=== PATIENT | male | born 1985 | race Caucasian/White ===

== ENCOUNTER 2024-07-17 07:13 | Inpatient (IN) | payer BC ==
[2024-07-17] MEDS ORDERED: ONDANSETRON 4 MG/2 ML VIAL ONE ×2 (07:30→13:57)
[2024-07-17] MEDS ORDERED: DIPHENHYDRAMINE 50 MG/ML VIAL ONE (07:30)
[2024-07-17] MEDS ORDERED: MORPHINE 4 MG/ML SYR ONE (07:30)
[2024-07-17] MEDS ORDERED: FAMOTIDINE 20 MG/2 ML VIAL IV ONE (07:30)
[2024-07-17] MEDS ORDERED: NA CHLORIDE 0.9% 1,000 ML ONE ×2 (07:30→11:49)
[2024-07-17 07:54] LABS: Absolute Basophils 0.2 K/uL (0-0.5); Absolute Eosinophils 0.1 K/uL (0-0.5); Absolute Lymphocytes (CBC) 2.9 K/uL (0.7-4.9); Absolute Monocytes 0.8 K/uL (0.1-1.3); Absolute Neutrophil 13.9 K/uL (1.8-8.0); Eosinophils % 0.3 % (0-4.4); Hematocrit 52.3 % (39.6-49.0); Lymphocytes % 16.1 % (15.3-44.8); MCH 33.7 pg (27.0-35.0); MCHC 36.3 g/dL (32.0-36.0); MCV 92.7 fL (80-100); MPV 7.7 fL (7.6-11.3); Monocytes % 4.4 % (3.3-12.3); Neutrophils % 78.2 % (41.7-73.7); Nucleated RBC Absolute Count 0.1 (0-0); Nucleated Red Blood Cells % 0.4 % (0-0); Platelets 318 thou/uL (152-406); RBC Red Blood Cell Count 5.64 M/uL (4.33-5.43); Red Cell Distribution Width 14.4 % (12.1-15.2)
[2024-07-17] MEDS ORDERED: HYDROMORPHONE HCL 1 MG/ML INJ ONE ×2 (08:10→10:27)
[2024-07-17 08:14] LABS: Albumin/Globulin Ratio 1.1 (1.1-1.8); Anion Gap 16.4 mEq/L (5.0-15.0); Bilirubin Total 2.2 mg/dL (0.2-1.0); Globulin 3.7 g/dL (2.3-3.5); Potassium 3.4 mEq/L (3.5-5.1); Protein, Total 7.7 g/dL (6.4-8.2)
[2024-07-17 08:19] LABS: Sqamous Epithelial <5 /HPF (None Seen); Urine Bacteria None Seen /HPF (<20); Urine Bilirubin NEGATIVE (Negative); Urine Blood Trace (Negative); Urine Clarity Clear (Clear); Urine Color Light-Orange (Yellow); Urine Culture Reflex Order NOT NEEDED; Urine Glucose NEGATIVE (Negative); Urine Ketones 1+ (Negative); Urine Microscopic Reflex YN ORDER UMIC; Urine Mucus 4+ /HPF (None Seen); Urine Nitrite NEGATIVE (Negative); Urine Protein 2+ (Negative); Urine RBC <5 /HPF (None Seen); Urine Urobilinogen Normal (Normal); Urine WBC <5 /HPF (<5); Urine pH 6.5 (5.0-7.0)
[2024-07-17 08:20] LABS: Specific Gravity > 1.030 (1.005-1.030)
[2024-07-17] MEDS ORDERED: LABETALOL 20 MG/4ML SYRINGE IV ONE ×2 (08:29→10:27)
--- NOTE | 2024-07-17 08:40 | RAD REPORT ---
EXAM: Chest Single View HISTORY: 38 years Male abdominal pain COMPARISON: None. FINDINGS: LUNGS/PLEURA: The lungs are clear. No pleural effusions or pneumothorax. No pulmonary edema. CARDIAC/MEDIASTINUM: The cardiac silhouette is within normal limits. UPPER ABDOMEN: No significant abnormality. BONES: No acute abnormality. LINES/TUBES/OTHER: N/A IMPRESSION: No evidence of acute cardiopulmonary disease.
--- NOTE | 2024-07-17 09:07 | EDPHYS ---
Physician Documentation [facility] Name: Serjio Galarza Age: 38 yrs Sex: Male : 1985 Arrival Date: 07/17/2024 Time: 07:13 Bed 13 Private MD: ED Physician Atilio Reyes HPI: 07/17 07:33 This 38 yrs old Male presents to ER via Ambulatory with complaints of Nausea/Vomiting, ms3 Abdominal Pain. 07:38 38-year-old male with past medical history of hypertension, hypothyroidism presents to [facility] the emergency department for epigastric abdominal pain, nausea, vomiting. Patient rates his pain a 10/10. Patient denies any alleviating or inciting factors. Patient states he is taken Tylenol and ibuprofen without improvement of his symptoms. Patient states he was seen at [place] [facility] last night and diagnosed with pancreatitis. Patient endorses drinking 3 to 4 glasses of whiskey per night over the last 3 years.. Historical: - Allergies: 07:22 opiates; ll1 - PMHx: 07:22 Hypertensive disorder; Hypothyroidism; ll1 - PSHx: 07:22 None; ll1 - Immunization history:: Adult Immunizations up to date. - Infectious Disease History:: Denies. - Social history:: Smoking status: Patient denies any tobacco usage or history of. ROS: 07:38 Constitutional: Negative for fever, and chills. Cardiovascular: Negative for chest ms3 pain, and palpitations. Respiratory: Negative for shortness of breath, cough, wheezing, and pleuritic chest pain, 07:38 MS/Extremity: Negative for injury and deformity, Skin: Negative for injury, rash, and discoloration, 07:38 Abdomen/GI: Positive for abdominal pain, nausea and vomiting, Exam: 07:38 Constitutional: This is a well developed, well nourished patient who is awake, alert, ms3 and in no acute distress. Cardiovascular: Regular rate and rhythm with a normal S1 and S2. No gallops, murmurs, or rubs. Normal PMI, no JVD. No pulse deficits. Respiratory: Lungs have equal breath sounds bilaterally, clear to auscultation and percussion. No rales, rhonchi or wheezes noted. No increased work of breathing, no retractions or nasal flaring. 07:38 Abdomen/GI: Inspection: abdomen appears normal, Bowel sounds: normal, Palpation: moderate abdominal tenderness, in all quadrants, Vital Signs: 07:22 BP 173 / 134; Pulse 130; Resp 26; Temp 97.3; Pulse Ox 93% ; Weight 132.45 kg; Height 5 ll1 ft. 10 in. ; Pain 10/10; 08:15 BP 185 / 124; Pulse 114; Resp 16; Pulse Ox 88% ; bp 09:11 BP 163 / 118; Pulse 98; Resp 18; Pulse Ox 92% ; bp 07:22 Body Mass Index 41.90 (132.45 kg, 177.8 cm) ll1 07:22 Pain Scale: Adult ll1 MDM: 07:17 Medical Screening Exam initiated ms3 07:38 Differential diagnosis: Nonspecific abd pain, gastritis, pancreatitis. External Records ms3 Reviewed: Outpatient labs: CBC from [facility][1] white blood count 13.2, hemoglobin 18.2, hematocrit 50.9, platelet 329. EKG performed 07/16/2024 at 1928 shows sinus tachycardia, nonspecific T wave abnormalities, normal axis. Urinalysis negative. Cardiac enzymes negative. Met 8: Sodium 141, potassium 4.4, chloride 102, bicarb 28, creatinine 1.1, glucose 144. Liver panel albumin 4.2, alk phos 55, ALT 28, amylase 37, AST 41, total bilirubin 0.9, GGT 135. CTA chest with IV contrast shows no acute findings in the visualized arteries of the chest. CT abdomen pelvis with IV contrast shows acute interstitial pancreatitis, hepatomegaly and hepatic steatosis. right upper quadrant ultrasound shows no acute findings in the right upper quadrant.. 10:16 Data reviewed: vital signs, nurses notes, lab test result(s), and as a result, I will ms3 admit patient. Consideration of Admission/Observation Patient was admitted/placed on observation. Management of patient was discussed with the following: Hospitalist: Dr Mendosa. I considered the following discharge prescriptions or medication management in the emergency department Medications were administered in the Emergency Department. See MAR. Counseling: I had a detailed discussion with the patient and/or guardian regarding the historical points, exam findings, and any diagnostic results supporting the discharge/admit diagnosis, lab results, the need for further work-up and treatment in the hospital. Medication response: labetalol partially reduced the patient's blood pressure, morphine partially relieved the patient's pain, Dilaudid. Response to treatment: the patient's symptoms have mildly improved after treatment, and as a result, I will admit patient. ED course: Discussed case with Dr Mendosa and he accepts patient for admission. Discussed necessity of admission with patient and his and they understand/ agree with plan.. 07/17 07:17 Order name: CBC with Diff; Complete Time: 08:09 ms3 07/17 07:17 Order name: CMP; Complete Time: 08:25 ms3 07/17 07:17 Order name: Lipase; Complete Time: 08:25 ms3 07/17 07:20 Order name: Urinalysis w/ reflexes; Complete Time: 08:25 bp 07/17 08:26 Order name: Lipid Profile ms3 07/17 09:13 Order name: CBC with Automated Diff EDMS 07/17 09:13 Order name: CBC with Automated Diff EDMS 07/17 09:13 Order name: Comprehensive Metabolic Panel EDMS 07/17 09:13 Order name: Comprehensive Metabolic Panel EDMS 07/17 07:35 Order name: CXR XRAY; Complete Time: 08:53 ms3 07/17 09:13 Order name: CONS Physician Consult EDMS 07/17 07:17 Order name: IV Saline Lock; Complete Time: 07:42 ms3 07/17 07:17 Order name: Labs collected and sent; Complete Time: 07:42 ms3 Administered Medications: 07:42 Drug: Famotidine IVP 20 mg IVP once; dilute with 10 mL 0.9% NaCl; give over 2 minutes bp Route: IVP; Site: right forearm; 08:14 Follow up: Response: No adverse reaction bp 07:42 Drug: Ondansetron IVP 4 mg IVP once; over 2 minutes Route: IVP; Site: right forearm; bp 08:14 Follow up: Response: No adverse reaction bp 07:42 Drug: morphine IVP or IV 4 mg IVP once over 4 mins Route: IVP; Infused Over: 4 mins; bp Site: right forearm; 08:14 Follow up: Response: No adverse reaction bp 07:42 Drug: diphenhydrAMINE IVP 25 mg IVP once Route: IVP; Site: right forearm; bp 08:14 Follow up: Response: No adverse reaction bp 07:42 Drug: NS 0.9% IV 1000 ml IV at 1000 ml once; to be given as a bolus over 60 minutes bp Route: IV; Rate: 1000 ml; Site: right forearm; 12:03 Follow up: IV Status: Completed infusion bp 08:14 Drug: HYDROmorphone IVP 1 mg IVP once Route: IVP; Site: right forearm; bp 08:14 Follow up: Response: No adverse reaction bp 08:32 Drug: Labetalol IV 10 mg IV at calculated rate once Route: IV; Rate: calculated rate; bp Site: right forearm; 12:03 Follow up: IV Status: Completed infusion bp 08:45 Drug: NS 0.9% IV 1000 ml IV at 1 bolus Per protocol; to be given as a bolus over 60 bp minutes Route: IV; Rate: 1 bolus; Site: right forearm; 12:03 Follow up: IV Status: Completed infusion bp 10:15 Drug: Ketorolac IVP 10 mg 10 mg IVP once Route: IVP; Site: right forearm; bp 12:03 Follow up: Response: No adverse reaction bp 10:20 Drug: Labetalol IV 10 mg IV at calculated rate once Route: IV; Rate: calculated rate; bp Site: right forearm; 12:02 Follow up: IV Status: Completed infusion bp 10:20 Drug: HYDROmorphone IVP 1 mg IVP once Route: IVP; Site: right forearm; bp 12:02 Follow up: Response: No adverse reaction bp Disposition Summary: 07/17/24 09:06 Hospitalization Ordered Notes: Hospitalization Status: Inpatient Admission ms3 Provider: Drake Mendosa ms3 Condition: Stable ms3 Problem: new ms3 Symptoms: are unchanged ms3 Bed/Room Type: Standard ms3 Location: Telemetry/MedSurg (Inpatient)(07/17/24 17:09) sp Room Assignment: 220(07/17/24 17:09) sp Diagnosis - Alcohol induced acute pancreatitis without necrosis or infection ms3 - Abdominal pain, Generalized ms3 Forms: - Medication Reconciliation Form ms3 - SBAR form ms3 - Leadership Thank You Letter ms3 Critical care time excluding procedures: 10:16 Critical care time: Bedside Care: 40 minutes, Consultation: 5 minutes, Family ms3 Intervention: 5 minutes. Total time: 50 minutes Signatures: Dispatcher [employer] EDSondra Torres Brian, RN RN Ciarra Johnson RN RN ll1 Atilio Reyes, DO ms3 Kelly Roe RN RN kb3 Corrections: (The following items were deleted from the chart) 07:17 07:17 CBC+H.LAB.BRZ ordered. EDMS EDMS 07:17 07:17 COMPREHENSIVE METABOLIC PANEL+C.LAB.BRZ ordered. EDMS EDMS 07:17 07:17 LIPASE+C.LAB.BRZ ordered. EDMS EDMS 07:20 07:20 Urinalysis+U.LAB.BRZ ordered. EDMS EDMS 07:35 07:35 Chest Single View+RAD.RAD.BRZ ordered. EDMS EDMS 07:47 07:38 38-year-old male with past medical history of hypertension, hypothyroidism ms3 presents to the emergency department for epigastric abdominal pain, nausea, vomiting. Patient rates his pain a 10/10. Patient denies any alleviating or inciting factors. Patient states he is taken Tylenol and ibuprofen without improvement of his symptoms. Patient states he was seen at [facility][1] last night and diagnosed with pancreatitis.. ms3 10:25 09:06 Telemetry/MedSurg (Inpatient) ms3 kb3 10:25 09:06 ms3 kb3 17:09 10:[address] [facility] ER HOLD kb3 sp 17:09 10:25 ERHOLD- kb3 sp
--- NOTE | 2024-07-17 09:07 | ER ---
Nurse's Notes [facility] Name: Serjio Galarza Age: 38 yrs Sex: Male : 1985 Arrival Date: 07/17/2024 Time: 07:13 Bed 13 Private MD: Diagnosis: Alcohol induced acute pancreatitis without necrosis or infection;Abdominal pain, Generalized Presentation: 07/17 07:22 Chief complaint: Patient states: Severe abdominal pain with N/V for 2 days. Urgent Care ll1 diagnosed him with pancreatitis. Coronavirus screen: Client denies travel out of the [place] in the last 14 days. fatigue, nausea, vomiting. Client presents with at least one sign or symptom that may indicate coronavirus-19. Standard/surgical mask placed on the client. Ebola Screen: Patient denies travel to an Ebola-affected area in the 21 days before illness onset. Initial Sepsis Screen: Does the patient meet any 2 criteria? No. Patient's initial sepsis screen is negative. Does the patient have a suspected source of infection? No. Patient's initial sepsis screen is negative. Risk Assessment: Do you want to hurt yourself or someone else? Patient reports no desire to harm self or others. Onset of symptoms was July 16, 2024. 07:22 Method Of Arrival: Ambulatory ll1 07:22 Acuity: ANGELA 2 ll1 Triage Assessment: 07:24 General: Appears distressed, uncomfortable, ill, Behavior is calm, cooperative, ll1 appropriate for age, Reports feeling ill for fatigue for. Neuro: No deficits noted. GI: Reports lower abdominal pain, upper abdominal pain, cramping, nausea, vomiting. Historical: - Allergies: 07:22 opiates; ll1 - PMHx: 07:22 Hypertensive disorder; Hypothyroidism; ll1 - PSHx: 07:22 None; ll1 - Immunization history:: Adult Immunizations up to date. - Infectious Disease History:: Denies. - Social history:: Smoking status: Patient denies any tobacco usage or history of. Screenin:45 [facility] ED Fall Risk Assessment (Adult) History of falling in the last 3 months, bp including since admission No falls in past 3 months (0 pts) Confusion or Disorientation No (0 pts) Intoxicated or Sedated No (0 pts) Impaired Gait No (0 pts) Mobility Assist Device Used No (0 pt) Altered Elimination No (0 pt) Score/Fall Risk Level 0 - 2 = Low Risk Oriented to surroundings. Abuse screen: Denies threats or abuse. Denies injuries from another. Nutritional screening: No deficits noted. Tuberculosis screening: No symptoms or risk factors identified. Assessment: 07:30 General: Appears distressed, uncomfortable, obese, Behavior is cooperative, appropriate bp for age, agitated, anxious. Pain: Complains of pain in abdomen. Neuro: No deficits noted. Cardiovascular: No deficits noted. Respiratory: No deficits noted. GI: Abdomen is non-distended, Reports upper abdominal pain. : No signs and/or symptoms were reported regarding the genitourinary system. EENT: No deficits noted. Derm: Skin is intact, Skin is clammy, Skin temperature is cool. 08:16 Reassessment: No changes from previously documented assessment. Patient is alert, bp oriented x 3, equal unlabored respirations, skin warm/dry/pink. Vital Signs: 07:22 BP 173 / 134; Pulse 130; Resp 26; Temp 97.3; Pulse Ox 93% ; Weight 132.45 kg; Height 5 ll1 ft. 10 in. ; Pain 10/10; 08:15 BP 185 / 124; Pulse 114; Resp 16; Pulse Ox 88% ; bp 09:11 BP 163 / 118; Pulse 98; Resp 18; Pulse Ox 92% ; bp 07:22 Body Mass Index 41.90 (132.45 kg, 177.8 cm) ll1 07:22 Pain Scale: Adult ll1 ED Course: 07:16 Patient arrived in ED. gm2 07:17 Atilio Reyes DO is Attending Physician. ms3 07:18 Luke Newby, RN is Primary Nurse. bp 07:22 Arm band placed on Patient placed in an exam room, on a stretcher. ll1 07:24 Triage completed. ll1 07:42 Initial lab(s) drawn, by me, sent to lab. Urine collected: clean catch specimen, ceci bp colored. Inserted saline lock: 20 gauge in right forearm, using aseptic technique. Blood collected. Flushed with 10 mL NS. 07:45 Patient has correct armband on for positive identification. bp 08:19 CXR XRAY In Process Unspecified. EDMS 09:05 Drake Mendosa MD is Hospitalizing Provider. ms3 12:01 No provider procedures requiring assistance completed. Patient admitted, IV remains in bp place. Administered Medications: 07:42 Drug: Famotidine IVP 20 mg IVP once; dilute with 10 mL 0.9% NaCl; give over 2 minutes bp Route: IVP; Site: right forearm; 08:14 Follow up: Response: No adverse reaction bp 07:42 Drug: Ondansetron IVP 4 mg IVP once; over 2 minutes Route: IVP; Site: right forearm; bp 08:14 Follow up: Response: No adverse reaction bp 07:42 Drug: morphine IVP or IV 4 mg IVP once over 4 mins Route: IVP; Infused Over: 4 mins; bp Site: right forearm; 08:14 Follow up: Response: No adverse reaction bp 07:42 Drug: diphenhydrAMINE IVP 25 mg IVP once Route: IVP; Site: right forearm; bp 08:14 Follow up: Response: No adverse reaction bp 07:42 Drug: NS 0.9% IV 1000 ml IV at 1000 ml once; to be given as a bolus over 60 minutes bp Route: IV; Rate: 1000 ml; Site: right forearm; 12:03 Follow up: IV Status: Completed infusion bp 08:14 Drug: HYDROmorphone IVP 1 mg IVP once Route: IVP; Site: right forearm; bp 08:14 Follow up: Response: No adverse reaction bp 08:32 Drug: Labetalol IV 10 mg IV at calculated rate once Route: IV; Rate: calculated rate; bp Site: right forearm; 12:03 Follow up: IV Status: Completed infusion bp 08:45 Drug: NS 0.9% IV 1000 ml IV at 1 bolus Per protocol; to be given as a bolus over 60 bp minutes Route: IV; Rate: 1 bolus; Site: right forearm; 12:03 Follow up: IV Status: Completed infusion bp 10:15 Drug: Ketorolac IVP 10 mg 10 mg IVP once Route: IVP; Site: right forearm; bp 12:03 Follow up: Response: No adverse reaction bp 10:20 Drug: Labetalol IV 10 mg IV at calculated rate once Route: IV; Rate: calculated rate; bp Site: right forearm; 12:02 Follow up: IV Status: Completed infusion bp 10:20 Drug: HYDROmorphone IVP 1 mg IVP once Route: IVP; Site: right forearm; bp 12:02 Follow up: Response: No adverse reaction bp Medication: 12:01 VIS not applicable for this client. bp Outcome: 09:06 Decision to Hospitalize by Provider. ms3 12:01 Admitted to ER Hold. Please see [facility] for further documentation. bp 12:01 Condition: stable 12:01 Instructed on the need for admit, 18:12 Patient left the ED. bp Signatures: Dispatcher [employer] EDLuke Frazier RN RN bp Ciarra Lynne RN RN ll1 Atilio Reyes DO DO ms3 Khadijah Martins gm2 Corrections: (The following items were deleted from the chart) 07:25 07:22 Pulse 130bpm; Resp 26bpm; Pulse Ox 93%; Temp 97.3F; 132.45 kg; Height 5 ft. 10 ll1 in.; BMI: 41.9; Pain 10/10, Adult; ll1
[2024-07-17] MEDS ORDERED: MORPHINE 4 MG/ML SYR IV PRN (09:08)
[2024-07-17] MEDS: NA CHLORIDE 0.9% 1,000 ML IV SCH (10:00)
[2024-07-17] MEDS ORDERED: KETOROLAC 30 MG/ML INJ ONE ×2 (10:03→15:26)
[2024-07-17] MEDS: FENTANYL CITR 100 MCG/2 ML IV PRN ×2 (13:00→18:42)
[2024-07-17] MEDS ORDERED: HYDROMORPHONE HCL 2 MG/ML inj IV PRN (13:01)
[2024-07-17] MEDS: PIPER TAZO 4.5 GM in NA CHLORIDE 0.9% 100 ML IV SCH (14:00)
[2024-07-17] MEDS: ONDANSETRON 4 MG/2 ML VIAL IV PRN (14:06)
[2024-07-17] MEDS: SODIUM CHLORIDE 0.9% 10ML INJ IV PRN (14:06)
[2024-07-17] MEDS ORDERED: PIPERACIL/TAZO 4.5 GM VIAL IV ONE (15:26)
[2024-07-17] MEDS ORDERED: NA CHLORIDE 0.9% 250 ML ONE (15:26)
[2024-07-17] MEDS: KETOROLAC 30 MG/ML INJ IV ONE (15:34)
[2024-07-17] MEDS: METOPROLOL TARTRATE 5 MG/5 ML INJ IV PRN (16:30)
[2024-07-17] MEDS ORDERED: FENTANYL CITR 100 MCG/2 ML ONE (16:41)
[2024-07-17] MEDS ORDERED: METOPROLOL TARTRATE 5 MG/5 ML INJ IV ONE (16:41)
--- NOTE | 2024-07-17 18:10 | P.HP ---
Patient History Date of Service: 07/17/24 Reason for admission: SEVERE ABDOMEN PAIN. History of Present Illness: JAMAR IS 38 YEARS OLD GM IN SEVERE STRESS COMES WITH EPIG PAIN AND RADIATION TO BACK. [facility] SHOWS ACUTE PANCREATITIS.GOES HOME BUT IS IN SEVERE PAIN SO RETURNS TO THIS ER. HE HAS LIPASE OF 2K. HE HAS DRUNK ABOUT 4 SCOTCH GLASSES EVERY NIGHT FOR A WHILE. Allergies narcotics Adverse Reaction (Uncoded 07/17/24 11:41) Nausea/Vomiting Home medications list reviewed: Yes - Past Medical/Surgical History Diabetic: No -: HTN - Social History Smoking Status: Never smoker Place of Residence: Home Review of Systems 10-point ROS is otherwise unremarkable General: Weakness Gastrointestinal: Abdominal Pain, Distention, As per HPI Physical Examination - Vital Signs Blood Pressure: 166/120 Pulse: 109 Respirations: 20 Pulse Ox (%): 95 - Physical Exam General: Alert, Severe distress (NOT ABLE TO SIT DOWN WITH SEVERE PAIN HE HAS. ), Obese HEENT: Atraumatic, PERRLA, Mucous membr. moist/pink, EOMI, Sclerae nonicteric Neck: Supple, 2+ carotid pulse no bruit, No LAD, Without JVD or thyroid abnormality Respiratory: Clear to auscultation bilaterally, Normal air movement Cardiovascular: Regular rate/rhythm, Normal S1 S2 Gastrointestinal: Normal bowel sounds, No tenderness Musculoskeletal: No tenderness Integumentary: No rashes Neurological: Normal gait, Normal speech, Normal strength at 5/5 x4 extr, Normal tone, Normal affect Lymphatics: No axilla or inguinal lymphadenopathy - Studies Laboratory Data (last 24 hrs) 07/17/24 07/17/24 07/17/24 07:43 07:43 07:43 WBC 17.80 H Hgb 19.0 H Hct 52.3 H Plt Count 318 Sodium 138 Potassium 3.4 L BUN 11 Creatinine 1.32 H Glucose 144 H Total Bilirubin 2.2 H AST 40 H ALT 39 Alkaline Phosphatase 64 Triglycerides 281 H Cholesterol 167 HDL Cholesterol 49 Cholesterol/HDL Ratio 3.41 Lipase 2078 H Assessment and Plan - Problems (Diagnosis) (1) Severe acute pancreatitis Current Visit: Yes Status: Acute Plan: IV PROTONIX IV ZOSYN PAIN CONTROL HE FAILED DILAUDID 1 MG, 2 MG, AND FENTANYL 25 MCG. TORADOL WORKS ONLY FOR ABOUT 15 MIN. I WILL AVOID TORADOL IT CAN GIVE RISE TO GI BLEED. I HAVE RAISED FENTANYL TO 50 MCG IV. I CALLED TO COME SEE HIM AND DISCUSSED WITH HIM. - Advance Directives Does patient have a Living Will: No Does patient have a Durable POA for Healthcare: No
[2024-07-17] MEDS: Ringers Lactate 1,000 ML IV SCH (18:43)
[2024-07-17] MEDS: PROMETHAZINE 25 MG TABLET PO PRN (18:43)
[2024-07-17] MEDS ORDERED: NALOXONE 0.4 MG/ML VIAL IV PRN (19:47)
[2024-07-17] MEDS: PANTOPRAZOLE 40 MG INJ IVP SCH (20:04)
[2024-07-17] MEDS: Mupirocin NASAL 2 APPL/1 GM TUBE NAS SCH (20:13)
[2024-07-17] MEDS: THIAMINE 200 MG/2 ML INJ IVP ONE (21:19)
[2024-07-17] MEDS: LORazepam 2 MG/ML VIAL IV PRN (21:19)
[2024-07-17] MEDS: HYDROMORPHONE/PCA 10 MG/50 ML SYR IV PRN (22:27)
--- NOTE | 2024-07-17 23:09 | CON ---
Date of Consultation: 07/17/2024 Reason For Service: Acute pancreatitis, surgical followup. History Of Present Illness: This is the case of a 38-year-old patient with history of hypertension a nd hypothyroidism, apparently went to [facility] last night. He was advised to be transferred to [facility] level of care, but he did not go. Returned to [facility], diagnosed with pancreatitis and admi tted to the hospital with acute pancreatitis. Despite multiple attempts to control his pain, he is s till complaining of it and Surgical consult was obtained for evaluation and help in the management. Apparently, he did have a some whiskey nightly and it is suspected as one of the causes of pancreatit is, although it is difficult to prove, so I am here to make sure that there is no gallstone related t o it. He denies any trauma. He denies any prior episode. He denies any dysuria, hematuria, hematoc hezia, or melena. Allergies: OPIOIDS. Medical History: As above. Surgical History: None. Social History: He does not smoke, but he admits to drinking 3 or 4 glasses of whiskey every night f or the last 3 years. He denies any dysuria, hematuria, hematochezia. He denies any recent traveling out of the country. He denies any trauma. Denies any family sick at home. Review of Systems: Abdominal pain, nausea. No fevers. No chills. Physical Examination: Vital Signs: Pulse 98, blood pressure is 163/118, respiratory rate of 18, O2 saturation is 92. General: The patient is awake and alert. Communicative, cooperative. HEENT: Pupils are equal and reactive. Anicteric. Neck: Supple. Chest: Clear. Abdomen: Distended with epigastric tenderness. No rebound. Rectal: Deferred. Extremities: Good capillary refill. Laboratory Data: Blood work shows WBC count of 17.8, hemoglobin of 19, hematocrit of 52.3, platelets of 318. Potassium 3.4, bicarb is 24, anion gap of 16.4, BUN is 11, creatinine is 1.32, glucose 144, total bilirubin of 2.2 with an AST of 40, alkaline phosphatase is 64, ALT of 40. Triglycerides 281. Calcium of 8.5. Lipase of 2078. At this moment, I did not have CAT scan or ultrasound available. There is a documentation. I just d iscussed the case with Dr. Mendosa, and also discussed the case with Dr. in ER. Apparently, he has at one point seen that CAT scan. He claimed that the CAT scan was done with IV contrast and also ultrasound, it was showing pancreatitis. Once again, I was trying to get information on it and they guaranteed me that was done, and we are just trying to see if in the process of coming from the ER to the floor that documentation is somewhere. I do not doubt it. I do not want to repeat another test that is unnecessary, but at the same time we need to find those tests. Assessment: Acute pancreatitis. Plan: This is a 38-year-old patient. We checked his [place] criteria and discussed that with the chris tapia and his primary care. Glucose still 144. AST is 40. Calcium is still 8.8. We are trying to s ee the hematocrit, how much variation do we have; hemoglobin of 19; WBC count of 7.8. At this moment , he is receiving IV fluids. He is also receiving fentanyl as a pain control. He has been receiving also antibiotic. He is afebrile at this moment. I noticed he has no allergies. He ment ioned receiving right now. We mentioned the [employer], but he does not recall any allergies to hydromorphone. So, we suggest this patient to be in the ICU. I believe his pain is still out of con trol. We are not sure exactly what we are going with his pancreatitis. Since he is already in the h ospital, we are going to move him to the ICU. We can have a better understanding of the vital signs and how much fluid sequestration he will be doing. In the meantime, trying to obtain the imaging to make sure that is accurate; the information that we have at this moment. We explained to him and the family the comorbidities that we have been also understand the sequela of acute pancreatitis. Given advice about alcohol cessation. He understands also the risks of pancreatitis and how in some occas ions we have a 20% mortality, so it is important that he follow the advice of his primary doctor and already mentioned to them if there is any deterioration of his symptoms, there is a possibility that he may have to be transferred to a higher level of care. HM/MODL Voice ID: [id number] Report ID: [id number]
--- NOTE | 2024-07-18 05:18 | RAD REPORT ---
PROCEDURE: XR Chest, 1 View CLINICAL INDICATION: The patient is 38 years old and is Male; PICC placement TECHNIQUE: Frontal view of the chest. COMPARISON: No relevant prior studies available. FINDINGS: LUNGS: Relatively low lung volumes bilaterally. Allowing for this and patient positioning, no focal consolidation. PLEURAL SPACE: No appreciable pleural effusion or pneumothorax. MEDIASTINUM: Unremarkable cardiomediastinal contour. BONES/JOINTS: Remote fractures of the posterior left 6th and 7th ribs. TUBES, LINES AND DEVICES: Left upper extremity PICC tip terminates in the SVC. IMPRESSION: 1. Left upper extremity PICC tip terminates in the SVC. 2. No acute cardiopulmonary abnormality. 3. Remote fractures of the posterior left 6th and 7th ribs. Electronically signed by: Raul Nguyen MD 07/18/2024 05:14 AM CDT Due to temporary technical issues with the [employer] reporting system, reports are being blanquita d by the in-house radiologist without review as a courtesy to ensure prompt reporting the interpreting radiologist is fully responsible for the content of the report. Transcribed Date/Time: 07/18/2024 5:18 AM
[2024-07-18 06:24] LABS: Absolute Basophils 0.1 K/uL (0-0.5); Absolute Lymphocytes (CBC) 1.5 K/uL (0.7-4.9); Absolute Monocytes 0.8 K/uL (0.1-1.3); Absolute Neutrophil 16.5 K/uL (1.8-8.0); Basophils % 0.6 % (0-1.3); Eosinophils % 0.1 % (0-4.4); Hematocrit 52.8 % (39.6-49.0); Hemoglobin 18.2 g/dL (13.6-17.9); Lymphocytes % 7.9 % (15.3-44.8); MCH 33.3 pg (27.0-35.0); MCHC 34.5 g/dL (32.0-36.0); MCV 96.5 fL (80-100); MPV 8.7 fL (7.6-11.3); Monocytes % 4.4 % (3.3-12.3); Nucleated RBC Absolute Count 0.1 (0-0); Nucleated Red Blood Cells % 0.3 % (0-0); Platelets 298 thou/uL (152-406); RBC Red Blood Cell Count 5.47 M/uL (4.33-5.43); Red Cell Distribution Width 14.6 % (12.1-15.2)
[2024-07-18 06:41] LABS: Albumin 2.8 g/dL (3.4-5.0); Albumin/Globulin Ratio 0.8 (1.1-1.8); Anion Gap 12.2 mEq/L (5.0-15.0); Bilirubin Direct 5.2 mg/dL (0-0.2); Bilirubin Indirect, Calculated 2.3 mg/dL (0.2-0.8); Bilirubin Total 7.5 mg/dL (0.2-1.0); Globulin 3.4 g/dL (2.3-3.5); Phosphorus 3.3 mg/dL (2.5-4.9); Protein, Total 6.2 g/dL (6.4-8.2)
[2024-07-18 06:43] LABS: Magnesium 1.3 mg/dL (1.6-2.4); Potassium 4.2 mEq/L (3.5-5.1)
[2024-07-18] MEDS: FLU (Fluarix Triv) TS24-25(6MOS UP)/PF 45 MCG/0.5 ML Syringe IM ONE (07:15)
[2024-07-18] MEDS: CLONIDINE 0.2 MG/PATCH TD SCH (07:43)
[2024-07-18 09:10] LABS: Band Neutrophils 32 % (0-1); Blood Morphology Comment NOT SEEN (NOT SEEN); Differential Total Cells Count 100; Lymphocytes 8 % (15-42); Metamyelocytes 1 % (0-0); Monocytes 1 % (0-10); Platelet Estimate ADEQ; Segmented Neutrophils 58 % (40-80)
[2024-07-18] MEDS: FUROSEMIDE 20 MG/ 2ML VIAL IV ONE (12:00)
[2024-07-18] MEDS: LEVALBUTEROL 0.63 MG/3 ML NEB NEB SCH (13:26)
[2024-07-18] MEDS: Ringers Lactate 500 ML IV ONE (16:15)
--- NOTE | 2024-07-18 17:32 | RAD REPORT ---
EXAMINATION: MR CHOLANGIOGRAM CLINICAL INDICATION: Male, 38 years old. pancreatitis TECHNIQUE: Multiplanar, multisequence MR imaging of the abdomen without intravenous contrast, and wit h specific attention to the biliary system. Unless otherwise specified, incidental findings do not require dedicated imaging follow-up. 3D MIP reconstruction performed. COMPARISON: No prior exam. FINDINGS: GALLBLADDER: No stones, wall thickening, or pericholecystic fluid. BILE DUCTS: No biliary ductal dilatation. Common bile duct measures up to 4 mm which is normal. LIVER: Normal in size, contour, and signal without evidence of fatty infiltration or iron deposition. No focal lesion. Perihepatic fluid. PANCREAS: Diffuse peripancreatic edema. Perisplenic and left retroperitoneal fluid identified. No polo creatic duct dilatation. LYMPH NODES: No lymphadenopathy. ADDITIONAL FINDINGS: None. IMPRESSION: Acute pancreatitis. No evidence of choledocholithiasis, stricture, or biliary ductal dilatation.
--- NOTE | 2024-07-18 19:05 | CON ---
Reason For Consultation: Elevated liver enzymes. The consultation has been specially requested by Myra Mendsoa. History Of Presenting Illness: The patient is a 38-year-old gentleman who presented to a small ER wi th severe abdominal pain after this happened after he had been eating and drinking alcohol in the for m of [place], found to have acute pancreatitis, recommended to be transferred, but refused, however, stephania fields comes back and gets admitted to the hospital this time. He has been drinking full glasses of sco tch every night for quite some time. Lipase was 2000. Admitted with a diagnosis of acute pancreatit is secondary to alcohol. Allergies: TO NARCOTICS. Home Medications: As in the chart. Review of Systems: GI as in HPI, otherwise negative. Remainder of 10-point review of system is negative. Social History: Denies smoking. Excessive alcohol use. Past Surgical History: Noncontributory to the current issue. Physical Examination: Vital Signs: Blood pressure on presentation 166/120, pulse 109, respiratory rate 20. Head: Atraumatic, normocephalic. Pupils equally reactive. Neck: Supple. Chest: Clear to auscultation bilaterally. Abdomen: Soft, nontender, nondistended. Bowel sounds present. Extremities: No pedal edema. Abdomen: Soft. Mild epigastric tenderness. Bowel sounds present. Extremities: No pedal edema. EXECUTIVE ASSISTANT TO GENERAL COUNSEL: Alert, oriented x3. CVS: S1, S2 plus. Laboratory Data: Reviewed. He does have leukocytosis of 17.8, but that may be reactionary due to in flammatory condition. Of note, his liver enzymes have trended up. His bilirubin has gone from 2.2 t o 7.5 and direct to 5.2. AST also increased to 141. However, lipase has improved today from 2000 to 576. He has been on Ringer's lactate. Hemoglobin has not dropped that much. Impression: A 38-year-old gentleman with history of alcohol abuse with acute pancreatitis, now with elevation of LFTs. The likely etiology may be acute alcoholic pancreatitis and alcoholic hepatitis. However, we definitely need to rule out choledocholithiasis. Plan: Continue current management. I will order acute hepatitis workup to be done. Also will get a n MRCP. The patient looks to be a little dehydrated still. So I am going to order 500 cc of Ringer' s lactate. We will order labs for the morning. If there is evidence of stone on MRCP, will need ERC P for stone extraction and cholecystectomy after that. US/MODL Voice ID: [id number] Report ID: [id number]
[2024-07-19 05:54] LABS: Protime INR 1.24
[2024-07-19 05:55] LABS: Absolute Basophils 0.1 K/uL (0-0.5); Absolute Eosinophils 0.1 K/uL (0-0.5); Absolute Lymphocytes (CBC) 1.5 K/uL (0.7-4.9); Basophils % 0.3 % (0-1.3); Eosinophils % 0.3 % (0-4.4); Hematocrit 43.5 % (39.6-49.0); Hemoglobin 15.6 g/dL (13.6-17.9); Lymphocytes % 8.8 % (15.3-44.8); MCH 34.3 pg (27.0-35.0); MCHC 35.8 g/dL (32.0-36.0); MCV 95.9 fL (80-100); MPV 9.1 fL (7.6-11.3); Monocytes % 5.8 % (3.3-12.3); Neutrophils % 84.8 % (41.7-73.7); Platelets 243 thou/uL (152-406); RBC Red Blood Cell Count 4.53 M/uL (4.33-5.43); Red Cell Distribution Width 14.7 % (12.1-15.2)
[2024-07-19 06:07] LABS: Albumin 2.5 g/dL (3.4-5.0); Albumin/Globulin Ratio 0.6 (1.1-1.8); Anion Gap 16.5 mEq/L (5.0-15.0); Bilirubin Direct 1.6 mg/dL (0-0.2); Bilirubin Total 2.6 mg/dL (0.2-1.0); Ferritin 1080.5 ng/mL (26-388); Globulin 3.9 g/dL (2.3-3.5); Protein, Total 6.4 g/dL (6.4-8.2)
[2024-07-19 06:10] LABS: Potassium 4.5 mEq/L (3.5-5.1)
[2024-07-19 06:56] LABS: Hepatitis B Core Ab, Total Nonreactive (Nonreactive); Hepatitis B Core IgM Nonreactive (Nonreactive); Hepatitis B surface AG Interp. Nonreactive (Nonreactive); Hepatitis C Virus Ab Nonreactive (Nonreactive)
[2024-07-19 06:57] LABS: HBsAG Nonreactive Report Report
[2024-07-19] MEDS: FUROSEMIDE 40 MG/4 ML VIAL IV ONE (07:58)
--- NOTE | 2024-07-19 08:13 | RAD REPORT ---
EXAMINATION: ONE VIEW CHEST XR CLINICAL INDICATION: Crackles TECHNIQUE: Frontal chest projection is submitted. Examination is limited by patient positioning and t echnique. COMPARISON: 07/18/2024 FINDINGS: The lungs are well inflated and clear. The heart is upper limit of normal in size. No displaced fract ures identified. Left-sided PICC line is tip in SVC. IMPRESSION: No acute intrathoracic abnormalities.
--- NOTE | 2024-07-19 09:42 | P.PN ---
Subjective Date of Service: 07/18/24 Chief Complaint: ABDOMEN PAIN IS BETTER ON 4/3 PATIENT FELT BETTER, PAIN WAS INTRACTABLE BUT NOW IS LOT BETTER. HE HAD NO DYSPNEA UNTIL PM. Review of Systems 10-point ROS is otherwise unremarkable General: Weakness, As per HPI Physical Examination - Vital Signs Temperature: 97.5 F Blood Pressure: 107/76 Pulse: 134 Respirations: 18 Pulse Ox (%): 95 - Physical Exam General: Oriented x3, Mild distress, Obese HEENT: Atraumatic, PERRLA, EOMI Neck: Supple, JVD not distended Respiratory: Clear to auscultation bilaterally, Normal air movement Cardiovascular: Regular rate/rhythm, Normal S1 S2 Gastrointestinal: Normal bowel sounds, No tenderness Musculoskeletal: No tenderness Integumentary: No rashes Neurological: Normal speech, Normal tone, Normal affect Lymphatics: No axilla or inguinal lymphadenopathy - Studies Medications List Reviewed: Yes Assessment And Plan - Current Problems (Diagnosis) (1) Severe acute pancreatitis Current Visit: Yes Status: Acute Plan: IV PROTONIX IV ZOSYN PAIN CONTROL HE FAILED DILAUDID 1 MG, 2 MG, AND FENTANYL 25 MCG. TORADOL WORKS ONLY FOR ABOUT 15 MIN. I WILL AVOID TORADOL IT CAN GIVE RISE TO GI BLEED. I HAVE RAISED FENTANYL TO 50 MCG IV. I CALLED TO COME SEE HIM AND DISCUSSED WITH HIM. BILI HIGH MAY BE FROM AL. HEPATITIS. (2) Alcoholic hepatitis Current Visit: Yes Status: Acute Plan: BILI HIGH AT 7. MRCP DONE. NEG. THIS SHOULD IMPROVE WITH TIME. (3) Bronchitis Current Visit: Yes Status: Acute Plan: LAST NIGHT HE HAD WHEEZES AND WE STARED NEBS TREATMENT.
--- NOTE | 2024-07-19 09:51 | P.CNS ---
Date of Consult: 07/19/24 Reason for Consult: Acute pancreatitis respiratory distress Chief Complaint: Respiratory distress acute pancreatitis History of Present Illness: Patient is 38 years of age with a history of alcohol abuse admitted with abdominal pain acute pancreatitis currently has abdominal distention abdominal pain hypotensive renal function has worsened significantly despite IV fluids history of sleep apnea does not use a CPAP machine Allergies narcotics Adverse Reaction (Uncoded 07/17/24 11:41) Nausea/Vomiting Home Medications: Carvedilol [Coreg] 6.25 mg PO BID 07/18/24 Levothyroxine [Synthroid*] 0.15 mg PO DAILY 07/18/24 - Past Medical/Surgical History Diabetic: No -: HTN -: Hypothyroidism -: Alcohol abuse -: Right hand bone pins - Family History Mom Medical History: Hypertension, Other (see notes) Notes: Thyroid issues Grandmom Medical History: Heart disease, Cancer Grand dad Medical History: Heart disease, Cancer Dad Medical History: Diabetes - Social History Alcohol use: Yes CD- Drugs: No Caffeine use: Yes Place of Residence: Home Review of Systems Respiratory: Shortness of Breath Gastrointestinal: Abdominal Pain Physical Examination Temp Pulse Resp BP Pulse Ox 97.5 F 134 H 18 107/76 95 07/19/24 09:42 07/19/24 09:42 07/19/24 09:42 07/19/24 09:42 07/19/24 09:42 General: Alert, Moderate distress Respiratory: Clear to auscultation bilaterally, Diminished Cardiovascular: No edema, Regular rate/rhythm, Normal S1 S2 Gastrointestinal: Normal bowel sounds, Distended - Problems (1) Severe acute pancreatitis Current Visit: Yes Status: Acute Plan: Patient is 38 years of age admitted with acute pancreatitis acute renal failure plan to give IV fluids as chest x-ray is clear oxygenation satisfactory use BiPAP labs reviewed abnormal LFTs avoid steroids for now may need to use Levophed 1 dose of Solu-Medrol will review steroids again recheck chemistries at noon most likely is always prerenal from his pancreatitis high doses of IV thiamine may need dexmedetomidine chest x-ray is clear patient is on Zosyn
[2024-07-19] MEDS: THIAMINE 200 MG/2 ML INJ IVP SCH (10:04)
[2024-07-19] MEDS: NA CHLORIDE 0.9% 1,000 ML ONE (10:04)
[2024-07-19] MEDS: METHYLPREDNISOLONE 40 MG INJ IV SCH (10:04)
[2024-07-19] MEDS: LIDOCAINE 1% 20 ML MDV ONE (13:19)
[2024-07-19] MEDS: HEPARIN 5000 UNIT/ML 1 ML VIAL ONE (14:00)
[2024-07-19 14:21] LABS: Anion Gap 18.5 mEq/L (5.0-15.0)
[2024-07-19 14:24] LABS: Potassium 4.5 mEq/L (3.5-5.1)
[2024-07-19 14:25] LABS: Thyroid Stimulating Hormone 12.3 uIU/mL (0.358-3.740)
--- NOTE | 2024-07-19 15:01 | P.PN ---
Subjective Date of Service: 07/18/24 Chief Complaint: acute pancreatitis, elevated liver enzymes Subjective: Other (as above) Review of Systems General: Malaise Eyes: Unremarkable Respiratory: As per HPI, Unremarkable Gastrointestinal: Abdominal Pain, As per HPI Integumentary: Unremarkable Physical Examination - Vital Signs Temperature: 98.0 F Blood Pressure: 141/98 Pulse: 128 Respirations: 23 Pulse Ox (%): 96 - Physical Exam General: Alert, Oriented x3, Cooperative HEENT: PERRLA, EOMI, Sclerae nonicteric Neck: Supple Respiratory: Normal air movement Cardiovascular: Edema Gastrointestinal: Distended (soft ), Tenderness, Guarding (epigastric) Musculoskeletal: No erythema, No tenderness, No warmth Integumentary: No rashes, No breakdown, No erythema, No warmth, No cyanosis Neurological: Normal speech - Studies reviewed with patient and primary Medications List Reviewed: Yes Assessment And Plan - Plan npo MRCP incentive spirometry scd IV fluid renal consult GI consult
--- NOTE | 2024-07-19 15:25 | PN ---
Date of Progress Note: 07/19/2024 Today I was called by Dr. Mendosa about the placement of a hemodialysis catheter. The patient has ozzie l insufficiency. I just discussed the case with and found that patient signed a cons ent. They have some questions about dialysis this morning and they want to make sure they talk to Dr Rosen first. Now, they clarified their questions. I explained to them once again the benefit s, alternatives, and risks of placement of a hemodialysis catheter, which include, but not limited to infection, bleeding, damage to adjacent structures, anesthesia complication, bleeding, OH, even deat h. He also understands this may not relieve the symptoms. He might need more than one surgical inte rvention. He understands that they asked me to do this at bedside because this is an emergency. The y just wanted to put a Marcelino. They do not want it tunneled at this moment, so this is temporary. It should be removed as soon as it is not in use anymore for dialysis. If he needs more intermediate timed dialysis, he may need a tunneled catheter and if he had a permanent dialysis, he is going to n eed an upper extremity dialysis. He understand all that. There is a chance also we are going to try a femoral region at that moment. He is having some other medical issues and complications from nahum re pancreatitis. There is a possibility that we might have to go in the neck of the chest at 1 point . If that is the case, the risks include also pneumothorax, DVTs, and PEs. HM/MODL Voice ID: [id number] Report ID: [id number]
[2024-07-19 15:31] LABS: Hepatitis B Surface Ab - Quant < 3.10 mIU/mL (<8.0)
[2024-07-19] MEDS: DEXMEDETOMIDINE HCL 1,000 MCG in NA CHLORIDE 0.9% 490 ML IV SCH (15:57)
--- NOTE | 2024-07-19 16:59 | P.PN ---
Subjective Date of Service: 07/19/24 Chief Complaint: short of breath, distended belly, not able to urinate Subjective: New changes Serjio has more dyspnea and distension of belly with reduced ability to urinate. His creatinine is 4.7 up from 1.[address] Samuels to have him dialysed, I called Dr. Senior to place in Marcelino catheter. I asked Dr. Walker to provide critical care. Review of Systems 10-point ROS is otherwise unremarkable General: Weakness, As per HPI Respiratory: Shortness of Breath, As per HPI Cardiovascular: Edema, As per HPI Neurological: As per HPI (some confusion today.) Physical Examination - Vital Signs Temperature: 98.4 F Blood Pressure: 121/91 Pulse: 121 Respirations: 19 Pulse Ox (%): 95 - Physical Exam General: Moderate distress, Obese HEENT: Atraumatic, PERRLA, EOMI Neck: Supple, JVD not distended Respiratory: Diminished, Inspiratory wheezes Cardiovascular: Regular rate/rhythm, Normal S1 S2 Gastrointestinal: Normal bowel sounds, No tenderness Musculoskeletal: No tenderness Integumentary: No rashes Neurological: Normal speech, Other (some disorientation and hallucinations.) Lymphatics: No axilla or inguinal lymphadenopathy - Studies Medications List Reviewed: Yes Assessment And Plan - Current Problems (Diagnosis) (1) Severe acute pancreatitis Current Visit: Yes Status: Acute Plan: IV PROTONIX IV ZOSYN PAIN CONTROL HE FAILED DILAUDID 1 MG, 2 MG, AND FENTANYL 25 MCG. TORADOL WORKS ONLY FOR ABOUT 15 MIN. I WILL AVOID TORADOL IT CAN GIVE RISE TO GI BLEED. I HAVE RAISED FENTANYL TO 50 MCG IV. I CALLED TO COME SEE HIM AND DISCUSSED WITH HIM. BILI HIGH MAY BE FROM AL. HEPATITIS. BILI CAME DOWN TO 2.6 FROM 7. (2) Bronchitis Current Visit: Yes Status: Acute Plan: LAST NIGHT HE HAD WHEEZES AND WE STARED NEBS TREATMENT. (3) Acute renal failure Current Visit: Yes Status: Acute Plan: HPI WE CALLED IN SPICIALISTS TO GET HD STARTED. THIS WILL BE TEMPORARY. HE SHOULD FEEL LOT BETTER ONCE HE GETS DIALYSIS. I EXPLAINED TO THE ABOUT THIRD SPACING AND LOW ALBUMIN RELATED ACUTE RENAL FAILURE. HE MAY HAVE ATN FROM PANCREATITS ALSO. PROGNOSIS IS GUARDED. HE SHOULD DO BETTER. (4) Hypocalcemia Current Visit: Yes Status: Acute Plan: FALSE LOW FROM LOW ALBUMIN. RENAL MD ON CASE. (5) Sleep apnea Current Visit: Yes Status: Chronic Plan: BIPAP WILL HELP. (6) Alcoholic hepatitis Current Visit: Yes Status: Acute Plan: BILI CAME DOWN TO 2.6 FROM 7. THIS SHOULD IMPROVE LONG HE QUIT ETOH.
[2024-07-19] MEDS ORDERED: ENOXAPARIN 40 MG/0.4 ML SQ SCH ×2 (17:00)
[2024-07-19] MEDS: ENOXAPARIN 30 MG/0.3 ML SQ SCH (17:48)
[2024-07-19 22:28] LABS: Arterial Blood Carboxyhemoglob 1.7 % (0-1.5); Blood Gas Oxyhemoglobin 93.3 % (94-97); Blood Gas THB 14.4 g/dl (12-18); Blood O2 Saturation 95.9 % (92-98.5)
--- NOTE | 2024-07-19 23:10 | CON ---
Date of Consultation: 07/19/2024 Reason For Consultation: The patient was admitted on July 17, 2024 because of abdominal pain and acu te pancreatitis. He is admitted to ICU. History Of Present Illness: The patient is 38 years of age with history of alcohol abuse, admitted w ith abdominal pain and acute pancreatitis. He has abdominal distention, abdominal pain, as well as d eveloped hypotensive episodes. Renal function has declined over the last 24 hours. On admission, cr eatinine level was elevated, although the patient over the last 24 hours developed polyuria, and Neph rology is consulted for dialysis. The patient is on IV fluids for hypotension and acute pancreatitis . The patient has dyspnea and he is on CPAP, although he does not want to use CPAP. Pulmonary Servi ce is consulted for history of respiratory distress. Past Medical History: Hypertension, hypothyroidism, alcohol abuse, Family History: Hypertension, thyroid disease, heart disease. Cancer in the grandmother. Cancer in the grandfather. Diabetes mellitus in his father. Social History: Alcohol: Yes, he has history of alcohol. Denies drugs. Review of Systems: Constitutional: Complains of generalized weakness. Eyes: Denies vision changes. Ears, Nose, Mouth, and Throat: Denies sore throat, earache. Respiratory: Has some shortness of breath. Cardiovascular: Denies chest pain, palpitation, syncope. GI: He is complaining of abdominal pain, abdominal distention. Genitourinary: Has some frequency, although developed oliguria. Physical Examination: General: The patient is alert, follows commands, in moderate respiratory distress. Neck: Supple. Respiratory: Clear to auscultation. Diminished breath sound at bases. Cardiovascular: S1 and S2. No peripheral edema. Abdomen: Normal bowel sounds. Abdomen is distended. No rebound. No guarding. Impression And Plan: 1. Acute kidney injury likely secondary to acute tubular necrosis in the setting of hypotension and a cute pancreatitis. Oliguric. The patient is on IV fluids for hypotension. He was started on Solu-M edrol and steroids per Critical Care Service. He is on broad-spectrum antibiotic, and he is on chace ine. Chest x-ray will be checked to check for pulmonary infiltrates. The patient will require dialy sis because of severe acute kidney injury, he developed oliguria over the last 24 hours, and he is no t responding to IV fluids as far as urine output. 2. Hyponatremia. Continue IV fluids. The patient has limited intake by mouth. 3. Hypotension. The patient may require pressors and Critical Care was consulted. Prognosis is guarded, although the patient will require dialysis and this was extensively discussed w ith the patient and his at the bedside. All questions were answered. The patient agreed to hav e hemodialysis catheter for dialysis access and to start dialysis for severe acute kidney injury. EB/MODL Voice ID: [id number] Report ID: [id number]
[2024-07-20] MEDS: ACETAMINOPHEN 500 MG TAB PO PRN (04:43)
[2024-07-20 06:04] LABS: Albumin 2.2 g/dL (3.4-5.0); Albumin/Globulin Ratio 0.5 (1.1-1.8); Anion Gap 21.3 mEq/L (5.0-15.0); Bilirubin Direct 0.9 mg/dL (0-0.2); Bilirubin Indirect, Calculated 0.7 mg/dL (0.2-0.8); Bilirubin Total 1.6 mg/dL (0.2-1.0); Globulin 4.1 g/dL (2.3-3.5); Phosphorus 6.4 mg/dL (2.5-4.9); Protein, Total 6.3 g/dL (6.4-8.2)
[2024-07-20 06:06] LABS: Magnesium 1.6 mg/dL (1.6-2.4); Potassium 4.3 mEq/L (3.5-5.1)
[2024-07-20 06:21] LABS: Absolute Basophils 0.1 K/uL (0-0.5); Absolute Lymphocytes (CBC) 0.9 K/uL (0.7-4.9); Absolute Neutrophil 6.9 K/uL (1.8-8.0); Eosinophils % 0.3 % (0-4.4); Hematocrit 37.6 % (39.6-49.0); Hemoglobin 13.3 g/dL (13.6-17.9); Lymphocytes % 10.2 % (15.3-44.8); MCH 34.2 pg (27.0-35.0); MCHC 35.4 g/dL (32.0-36.0); MCV 96.4 fL (80-100); MPV 8.7 fL (7.6-11.3); Monocytes % 11.1 % (3.3-12.3); Neutrophils % 77.4 % (41.7-73.7); Nucleated Red Blood Cells % 0.1 % (0-0); Platelets 208 thou/uL (152-406); Red Cell Distribution Width 14.5 % (12.1-15.2)
--- NOTE | 2024-07-20 07:02 | RAD REPORT ---
EXAM: URINARY BLADDER ULTRASOUND COMPARISON: CLINICAL INDICATION: RETENTION OF URINE. TECHNIQUE: Multiplanar grayscale and color flow sonographic images were obtained through the pelvis for evaluation of the bladder.. FINDINGS: The urinary bladder does not appear distended and is not well visualized sonographically. S mall volume pelvic free fluid.
--- NOTE | 2024-07-20 07:06 | RAD REPORT ---
EXAMINATION: COMPLETE ABDOMINAL ULTRASOUND CLINICAL INDICATION: PAIN IN ABDOMEN TECHNIQUE: Grayscale ultrasonography of the abdomen was performed. COMPARISON: No prior exam. FINDINGS: LIVER: Increased echogenicity with reduced sonographic penetration and without focal mass. GALLBLADDER: No gallstones, gall bladder wall thickening or pericholecystic fluid. BILE DUCTS: Intrahepatic and extrahepatic bile ducts appear normal. Measured near the shira hepatis , the common bile duct is not well seen. RIGHT KIDNEY: Normal in echogenicity and size. No calculus, solid mass or hydronephrosis. LEFT KIDNEY:. Normal in echogenicity and size. No calculus, solid mass or hydronephrosis. SPLEEN: Normal in echogenicity, with length of 13 cm. PANCREAS/AORTA: Partially obscured by bowel gas without abnormality grossly appreciated. Significant bowel gas is present limiting the study. IMPRESSION: Prominent diffuse fatty liver.
[2024-07-20 08:55] LABS: Blood Morphology Comment NOT SEEN (NOT SEEN); Platelet Estimate ADEQ; White Blood Cell Scan OK (OK)
[2024-07-20] MEDS: CALCIUM GLUCONATE 1 GM IVPB 1 GM/50 ML BAG IV ONE (10:58)
--- NOTE | 2024-07-20 11:28 | RAD REPORT ---
EXAMINATION: CT ABDOMEN AND PELVIS WITHOUT CONTRAST CLINICAL INDICATION: Pancreatitis TECHNIQUE: CT abdomen and pelvis was performed, without IV contrast, as per department protocol. Axia l, sagittal and coronal reconstructions were obtained. One or more of the following dose reduction techniques were used: Automated exposure control, adjustment of the mA and kV according to the patien t size, and iterative reconstruction. Unless otherwise specified, incidental findings do not require dedicated imaging follow-up. COMPARISON: No prior exam. FINDINGS: The lack of intravenous contrast limits the sensitivity of this exam for evaluation of solid visceral organs, vascular structures, and retroperitoneum. LOWER CHEST: Atelectasis is present in both lung bases, greater on the left with small left pleural e ffusion. LIVER:Advanced fatty liver. Hyperdensity within the gallbladder. SPLEEN: Normal size. No focal lesion. PANCREAS: There is moderately severe peripancreatic inflammation with fluid seen in the left and righ t paracolic gutters. No well-formed fluid collection. ADRENALS: Normal; no mass. KIDNEYS AND URETERS: Normal size and contour. No hydronephrosis. URINARY BLADDER: Normal contour. GASTROINTESTINAL TRACT: No evidence of bowel obstruction, free air or abscess. APPENDIX: Appendix not visualized, but no inflammatory changes in region of appendix. LYMPH NODES: No lymphadenopathy. MUSCULOSKELETAL: No acute or suspicious osseous abnormality. ADDITIONAL FINDINGS: Small fat-containing right hernia. IMPRESSION: Moderate to significant peripancreatic inflammatory changes compatible with pancreatitis. No abscess or pseudocyst seen. Prominent fatty liver.
--- NOTE | 2024-07-20 12:20 | PN ---
Date of Progress Note: 07/20/2024 Subjective: The patient started dialysis yesterday. Continued to be anuric. We will do dialysis to day and replace calcium. Objective: Vital Signs: Temperature 98.1, pulse rate 101, blood pressure 119/76. General: Awake, alert, oriented x3, in mild distress, obese. Neck: Supple. No elevated JVD. Heart: Regular rate and rhythm. Normal S1, S2. Chest: Clear to auscultation bilaterally. No rales or wheezes. Abdomen: Distended. Slightly tender. Has right femoral catheter. Extremities: Trace edema. Laboratory Data: White count 8.9, hemoglobin 13.3, and platelet 208. Sodium 129, bicarb 19, BUN 67, creatinine 6.1, calcium 6.6, phosphorus 6.4, albumin 2.2. Medications: Include Tylenol p.r.n., Dilaudid, pantoprazole, Zosyn, thiamine. Assessment And Plan: 1. Acute kidney injury, possibly due to ATN. The patient is oliguric, started on dialysis. We will dialyze the patient today with target of fluid 2 L removal and renally dosed medication. Avoid NSAID and contrast at this time. 2. Hyponatremia due to fluid retention. Will correct with dialysis. 3. Hypocalcemia. Corrected calcium when on 8. We will replace. 4. Hyperphosphatemia due to acute kidney injury. Continue to monitor for now. We will hold on binde r until patient has started diet. 5. Acute pancreatitis, possibly alcoholic. White count trending down. Continue to monitor. Thanks for allowing us to participate in patient's care. Total time spent 55 minutes including docum entation, reviewing labs, and placing orders. WALE/EMILIA Voice ID: [id number] Report ID: [id number]
--- NOTE | 2024-07-20 13:50 | P.PN ---
Subjective Date of Service: 07/20/24 Chief Complaint: SOME PAIN OFF AND ON IN ABDOMEN, BREATHES BETTER. Subjective: Improving He is lot better than yesterday. Breathing and bloating is better with HD. He has some pain in belly. Review of Systems 10-point ROS is otherwise unremarkable General: Weakness Physical Examination - Vital Signs Temperature: 98.8 F Blood Pressure: 110/47 Pulse: 61 Respirations: 14 Pulse Ox (%): 99 - Physical Exam General: Mild distress, Obese HEENT: Atraumatic, PERRLA, EOMI Neck: Supple, JVD not distended Respiratory: Clear to auscultation bilaterally, Normal air movement Cardiovascular: Regular rate/rhythm, Normal S1 S2 Gastrointestinal: Tenderness (some, mainly bloating in abdomen and legs. ) Musculoskeletal: No tenderness Integumentary: No rashes Neurological: Normal speech, Normal tone, Normal affect Lymphatics: No axilla or inguinal lymphadenopathy - Studies Medications List Reviewed: Yes Assessment And Plan - Current Problems (Diagnosis) (1) Severe acute pancreatitis Current Visit: Yes Status: Acute Plan: IV PROTONIX IV ZOSYN PAIN CONTROL HE FAILED DILAUDID 1 MG, 2 MG, AND FENTANYL 25 MCG. TORADOL WORKS ONLY FOR ABOUT 15 MIN. I WILL AVOID TORADOL IT CAN GIVE RISE TO GI BLEED. I HAVE RAISED FENTANYL TO 50 MCG IV. I CALLED TO COME SEE HIM AND DISCUSSED WITH HIM. BILI HIGH MAY BE FROM AL. HEPATITIS. BILI CAME DOWN TO 2.6 FROM 7. START TPN TODAY. DW DR. DE ANDA. STABLE. (2) Bronchitis Current Visit: Yes Status: Acute Plan: LAST NIGHT HE HAD WHEEZES AND WE STARED NEBS TREATMENT. IMPROVED WHEEZES. (3) Acute renal failure Current Visit: Yes Status: Acute Plan: HPI WE CALLED IN SPICIALISTS TO GET HD STARTED. THIS WILL BE TEMPORARY. HE SHOULD FEEL LOT BETTER ONCE HE GETS DIALYSIS. I EXPLAINED TO THE ABOUT THIRD SPACING AND LOW ALBUMIN RELATED ACUTE RENAL FAILURE. HE MAY HAVE ATN FROM PANCREATITS ALSO. PROGNOSIS IS GUARDED. HE SHOULD DO BETTER. HE WILL GET MORE HD TODAY TO IMPROVE BLOATING. HOPEFULLY HD IS TEMPORARY. (4) Hypocalcemia Current Visit: Yes Status: Acute Plan: FALSE LOW FROM LOW ALBUMIN. RENAL MD ON CASE. (5) Sleep apnea Current Visit: Yes Status: Chronic Plan: BIPAP WILL HELP. (6) Alcoholic hepatitis Current Visit: Yes Status: Acute Plan: BILI CAME DOWN TO 2.6 FROM 7. THIS SHOULD IMPROVE LONG HE QUIT ETOH.
--- NOTE | 2024-07-20 14:13 | P.PN ---
Subjective Date of Service: 07/20/24 Chief Complaint: Acute pancreatitis Subjective: No new changes Review of Systems General: Malaise Eyes: Unremarkable Respiratory: As per HPI Cardiovascular: Chest Pain (no), Unremarkable Gastrointestinal: Abdominal Pain, Distention Neurological: Weakness Physical Examination - Vital Signs Temperature: 98.8 F Blood Pressure: 110/47 Pulse: 61 Respirations: 14 Pulse Ox (%): 99 - Physical Exam General: Alert, In no apparent distress, Oriented x3, Cooperative HEENT: PERRLA, EOMI, Sclerae nonicteric Neck: Supple Respiratory: Clear to auscultation bilaterally Cardiovascular: Normal pulses Gastrointestinal: Hypoactive, No rebound, Distended, Tenderness Musculoskeletal: No erythema, No tenderness, No warmth, Other (HD cath intact.) Integumentary: No rashes, No erythema, No warmth, No cyanosis Neurological: Normal speech - Studies Imagings Data: CT reviewed Medications List Reviewed: Yes Assessment And Plan - Plan TPN/PPN incentive spirometry scd IV fluid
[2024-07-20] MEDS: AA 5%/D20W/ELECTROLYTES-TPN 2,000 ML, Lipids 20% 250 ML with MULTIVITAMINS INJ 10 ML IV SCH (16:54)
[2024-07-21] MEDS: FENTANYL CITR 100 MCG/2 ML IV PRN (01:27)
[2024-07-21 04:50] LABS: Absolute Lymphocytes (CBC) 0.5 K/uL (0.7-4.9); Absolute Monocytes 1.1 K/uL (0.1-1.3); Absolute Neutrophil 4.4 K/uL (1.8-8.0); Basophils % 0.4 % (0-1.3); Eosinophils % 0.8 % (0-4.4); Hematocrit 33.9 % (39.6-49.0); Lymphocytes % 8.9 % (15.3-44.8); MCH 34.2 pg (27.0-35.0); MCHC 35.4 g/dL (32.0-36.0); MCV 96.5 fL (80-100); MPV 8.4 fL (7.6-11.3); Monocytes % 17.3 % (3.3-12.3); Nucleated Red Blood Cells % 0.1 % (0-0); Platelets 143 thou/uL (152-406); RBC Red Blood Cell Count 3.51 M/uL (4.33-5.43); Red Cell Distribution Width 14.5 % (12.1-15.2)
[2024-07-21 05:08] LABS: Neutrophils % 72.6 % (41.7-73.7)
[2024-07-21 08:13] LABS: Albumin 1.9 g/dL (3.4-5.0); Albumin/Globulin Ratio 0.5 (1.1-1.8); Anion Gap 15.3 mEq/L (5.0-15.0); Bilirubin Direct 0.8 mg/dL (0-0.2); Bilirubin Indirect, Calculated 0.3 mg/dL (0.2-0.8); Bilirubin Total 1.1 mg/dL (0.2-1.0); Globulin 4.1 g/dL (2.3-3.5); Magnesium 2.2 mg/dL (1.6-2.4); Potassium 4.3 mEq/L (3.5-5.1)
[2024-07-21] MEDS: INSULIN REGULAR (HUMAN) 100 UNIT/ML SQ ONE (08:37)
--- NOTE | 2024-07-21 11:07 | P.PN ---
Subjective Date of Service: 07/21/24 Chief Complaint: Acute pancreatitis with acute renal failure Patient's breathing is better however he complains of abdominal distention and tightness no nausea vomiting or diarrhea Review of Systems General: Weakness Gastrointestinal: Abdominal Pain, Distention Physical Examination - Vital Signs Temperature: 98.2 F Blood Pressure: 128/78 Pulse: 99 Respirations: 19 Pulse Ox (%): 93 - Physical Exam General: Alert, Oriented x3 Respiratory: Clear to auscultation bilaterally, Diminished Gastrointestinal: Normal bowel sounds, Hypoactive, Distended - Studies Medications List Reviewed: Yes Assessment And Plan - Current Problems (Diagnosis) (1) Severe acute pancreatitis Current Visit: Yes Status: Acute Plan: Pain patient is 38 years of age admitted with acute severe pancreatitis ATN renal failure on dialysis also complaining of abdominal distention we will check a KUB labs reviewed blood sugar is very high blood sugar is elevated liver function tests are improving his vital signs are all stable
[2024-07-21 11:18] VITALS: BMI 42.5
[2024-07-21] MEDS: INSULIN REGULAR (HUMAN) 100 UNIT/ML SQ SCH (12:20)
[2024-07-21] MEDS: INSULIN GLARGINE 100 UNIT/ML SQ SCH (12:20)
--- NOTE | 2024-07-21 13:06 | RAD REPORT ---
EXAM: XR Abdomen 1 View (KUB) HISTORY: [facility] MAIN Distended Abdomen COMPARISON: CT abdomen and pelvis 07/20/2024 FINDINGS: Single view of the abdomen shows a nonspecific, nonobstructive small bowel gas pattern. Mod erate gaseous distention of large bowel especially proximally again seen. No suspicious calcifications are seen. The bones are unremarkable. IMPRESSION: Stable pattern of moderate gaseous distention of large bowel.
--- NOTE | 2024-07-21 16:52 | P.PN ---
Subjective Date of Service: 07/21/24 Chief Complaint: Acute pancreatitis with acute renal failure Subjective: Improving He is lot better than yesterday. Breathing and bloating is better with HD. He has some pain in belly that has improved. CT shows nothing but acute pancreatitis. I answered questions for . Review of Systems 10-point ROS is otherwise unremarkable General: Weakness Physical Examination - Vital Signs Temperature: 98.2 F Blood Pressure: 131/85 Pulse: 103 Respirations: 23 Pulse Ox (%): 97 - Physical Exam General: Mild distress, Obese HEENT: Atraumatic, PERRLA, EOMI Neck: Supple, JVD not distended Respiratory: Clear to auscultation bilaterally, Normal air movement Cardiovascular: Regular rate/rhythm, Normal S1 S2, Other (gen edema from third spacing. ) Musculoskeletal: No tenderness Integumentary: No rashes Neurological: Normal speech, Normal tone, Normal affect Lymphatics: No axilla or inguinal lymphadenopathy - Studies Medications List Reviewed: Yes Assessment And Plan - Current Problems (Diagnosis) (1) Severe acute pancreatitis Current Visit: Yes Status: Acute Plan: IV PROTONIX IV ZOSYN PAIN CONTROL HE FAILED DILAUDID 1 MG, 2 MG, AND FENTANYL 25 MCG. TORADOL WORKS ONLY FOR ABOUT 15 MIN. I WILL AVOID TORADOL IT CAN GIVE RISE TO GI BLEED. I HAVE RAISED FENTANYL TO 50 MCG IV. I CALLED TO COME SEE HIM AND DISCUSSED WITH HIM. BILI HIGH MAY BE FROM AL. HEPATITIS. BILI CAME DOWN TO 2.6 FROM 7. START TPN TODAY. DW DR. DE ANDA. STABLE. (2) Bronchitis Current Visit: Yes Status: Acute Plan: LAST NIGHT HE HAD WHEEZES AND WE STARED NEBS TREATMENT. IMPROVED WHEEZES. (3) Acute renal failure Current Visit: Yes Status: Acute Plan: HPI WE CALLED IN SPICIALISTS TO GET HD STARTED. THIS WILL BE TEMPORARY. HE SHOULD FEEL LOT BETTER ONCE HE GETS DIALYSIS. I EXPLAINED TO THE ABOUT THIRD SPACING AND LOW ALBUMIN RELATED ACUTE RENAL FAILURE. HE MAY HAVE ATN FROM PANCREATITS ALSO. PROGNOSIS IS GUARDED. HE SHOULD DO BETTER. HE WILL GET MORE HD TODAY TO IMPROVE BLOATING. HOPEFULLY HD IS TEMPORARY. STABLE, DOING WELL WITH HD CREAT STILL 7. (4) Hypocalcemia Current Visit: Yes Status: Acute Plan: FALSE LOW FROM LOW ALBUMIN. RENAL MD ON CASE. (5) Sleep apnea Current Visit: Yes Status: Chronic Plan: BIPAP WILL HELP. NASAL PAD IS NOT AVAILABLE. HE WILL BUY IF WE CAN ALLOW. (6) Alcoholic hepatitis Current Visit: Yes Status: Acute Plan: BILI CAME DOWN TO 2.6 FROM 7. THIS SHOULD IMPROVE LONG HE QUIT ETOH. (7) Hyperglycemia Current Visit: Yes Status: Acute Plan: FROM TPN SHOULD IMPROVE WHEN WE ARE ABLE TO FEED HIM. LANTUS STARTED DAILY FOR NOW.
[2024-07-21] MEDS: INSULIN REGULAR IV SCH (16:54)
[2024-07-21] MEDS: [UNRECOGNIZED DRUG - OTHER] IV SCH (16:54)
[2024-07-21] MEDS: HUMAN IV SCH (16:54)
[2024-07-21] MEDS ORDERED: AA 5%/D20W/ELECTROLYTES-TPN 2,000 ML IV SCH (17:00)
--- NOTE | 2024-07-21 20:41 | PN ---
Date of Progress Note: 07/21/2024 Diagnosis: Severe acute pancreatitis. Subjective: The patient feels better. No nausea, no vomiting, except he is still having epigastric pain. Objective: Chest: Bilateral breath sounds. Abdomen: Distended. Bowel sounds positive, although tender. Extremities: Good capillary refill. No calf tenderness. Laboratory Data: Blood work shows a WBC count of 6 with hemoglobin of 12, platelets of 143. INR is 1.24, bicarb is still 18.4, pCO2 38.8, potassium 4.3, glucose 463 with a creatinine of 7.1, BUN is 75 . From the surgical standpoint, we have once again reiterated to the person that any surgical intervent ion to be done for the pancreas is going to have to be transferred to another institution, although altagracia dotson is improving right now from his numbers, at least from the GI standpoint. From the surgical standp oint, diet-lomas I believe we still should hold. He is barely starting to recover from this severe pa ncreatitis and he is still with epigastric pain. At this moment, we might once again re-activate the pancreatitis and the second time may not be as jamie as the first time, so he understand he does not want to be neither, that is why we advised parenteral nutrition. Continue to follow with you. If altagracia dotson continue with the dialysis, once the opportunity comes in, we will like to take him to surgery and change the catheter to a tunnel catheter on the upper torso. At this moment that may require some an esthetic and his lungs are just recovering, this moment may not be the right time. JOSE/MODL Voice ID: [id number] Report ID: [id number]
[2024-07-22] MEDS: NA CHLORIDE 0.9% 100 ML ONE ×2 (04:49→21:54)
[2024-07-22 05:26] LABS: Absolute Eosinophils 0.1 K/uL (0-0.5); Absolute Lymphocytes (CBC) 0.8 K/uL (0.7-4.9); Absolute Monocytes 0.5 K/uL (0.1-1.3); Absolute Neutrophil 7.3 K/uL (1.8-8.0); Basophils % 0.5 % (0-1.3); Eosinophils % 1.1 % (0-4.4); Hematocrit 34.8 % (39.6-49.0); Hemoglobin 12.3 g/dL (13.6-17.9); Lymphocytes % 9.5 % (15.3-44.8); MCH 33.5 pg (27.0-35.0); MCHC 35.3 g/dL (32.0-36.0); MCV 95.1 fL (80-100); MPV 8.8 fL (7.6-11.3); Monocytes % 5.7 % (3.3-12.3); Nucleated Red Blood Cells % 0.2 % (0-0); Platelets 170 thou/uL (152-406); RBC Red Blood Cell Count 3.66 M/uL (4.33-5.43); Red Cell Distribution Width 14.3 % (12.1-15.2)
[2024-07-22 05:28] LABS: Neutrophils % 83.2 % (41.7-73.7)
[2024-07-22 05:47] LABS: Anion Gap 17.6 mEq/L (5.0-15.0); Magnesium 2.3 mg/dL (1.6-2.4); Potassium 3.6 mEq/L (3.5-5.1)
--- NOTE | 2024-07-22 11:39 | ECHO ---
HEIGHT: 5 ft 10 in WEIGHT: 296 lb 9.6 oz DATE OF STUDY: 07/22/[address]: Drake Mendosa MD 2-DIMENSIONAL: YES M.MODE: YES DOPPLER: YES COLOR FLOW: YES TDS: NO PORTABLE: YES DEFINITY: NO BUBBLE STUDY: NO DIAGNOSIS: FLUID RETENTION CARDIAC HISTORY: CATHERIZATION: NO SURGERY: NO PROSTHETIC VALVE: NO PACEMAKER: NO MEASUREMENTS (cm) DIASTOLIC (NORMALS) SYSTOLIC (NORMALS) IVSd 1.2 (0.6-1.2) LA Diam 3.9 (1.9-4.0) LVEF 60-65% LVIDd 5.2 (3.5-5.7) LVIDs 3.7 (2.0-3.5) %FS 28% LVPWd 1.3 (0.6-1.2) Ao Diam 2.9 (2.0-3.7) 2 DIMENSIONAL ASSESSMENT: RIGHT ATRIUM: NORMAL LEFT ATRIUM: NORMAL RIGHT VENTRICLE: NORMAL LEFT VENTRICLE: NORMAL TRICUSPID VALVE: TRACE TRICUSPID REGURGITATION MITRAL VALVE: NORMAL PULMONIC VALVE: NORMAL AORTIC VALVE: NORMAL PERICARDIAL EFFUSION: NONE AORTIC ROOT: NORMAL LEFT VENTRICULAR WALL MOTION: NORMAL. DOPPLER/COLOR FLOW: NORMAL. COMMENTS: 1. NORMAL LEFT VENTRICULAR SYSTOLIC FUNCTION. LEFT VENTRICULAR EJECTION FRACTION 60-65%. NORMAL WALL MOTION. 2. NORMAL DIASTOLIC FUNCTION. 3. INFERIOR VENA CAVA NOT VISUALIZED. TECHNOLOGIST: ANTONINA BEAUCHAMP
--- NOTE | 2024-07-22 12:04 | P.PN ---
Subjective Date of Service: 07/22/24 Chief Complaint: Acute pancreatitis with acute renal failure Patient is 38 years of age admitted with acute severe pancreatitis now complains of abdominal distention has some ileus on the KUB s/p dialysis has ATN Review of Systems General: Weakness Respiratory: Shortness of Breath Gastrointestinal: Distention Physical Examination - Vital Signs Temperature: 98.2 F Blood Pressure: 127/81 Pulse: 109 Respirations: 19 Pulse Ox (%): 95 - Physical Exam General: Alert, Mild distress Respiratory: Clear to auscultation bilaterally Cardiovascular: No edema, Regular rate/rhythm, Normal S1 S2, Edema Gastrointestinal: Hypoactive, Distended - Studies Medications List Reviewed: Yes Assessment And Plan - Current Problems (Diagnosis) (1) Severe acute pancreatitis Current Visit: Yes Status: Acute Plan: Patient is 38 years of age admitted with acute pancreatitis has now has ileus KUB done yesterday plan to insert an NG tube and decompress his stomach intermittent suction patient's sugar is still elevated is on TPN and may benefit from use of nasal CPAP once his stomach has been decompressed patient has ATN is currently undergoing dialysis
--- NOTE | 2024-07-22 12:12 | P.PN ---
Subjective Date of Service: 07/22/24 Chief Complaint: Acute pancreatitis with acute renal failure Subjective: Improving He is lot better than yesterday. Breathing and bloating is better with HD. He has some pain in belly that has improved. CT shows nothing but acute pancreatitis. I answered questions for . He was able to walk without any assistance. Dyspnea some. He has refused xopenex but he will use now once i explained. He also rerfuses bipap as it does not stay. Dr. Soria will try nasal pad from his office. Review of Systems 10-point ROS is otherwise unremarkable General: Weakness, As per HPI Physical Examination - Vital Signs Temperature: 98.2 F Blood Pressure: 127/81 Pulse: 109 Respirations: 19 Pulse Ox (%): 95 - Physical Exam General: Oriented x3, Obese HEENT: Atraumatic, PERRLA, EOMI Neck: Supple, JVD not distended Respiratory: Clear to auscultation bilaterally, Normal air movement Cardiovascular: Regular rate/rhythm, Normal S1 S2 Gastrointestinal: Hypoactive, Distended (post iv fluids. ) Musculoskeletal: No tenderness Integumentary: No rashes Neurological: Normal speech, Normal tone, Normal affect Lymphatics: No axilla or inguinal lymphadenopathy - Studies Medications List Reviewed: Yes Assessment And Plan - Current Problems (Diagnosis) (1) Severe acute pancreatitis Current Visit: Yes Status: Acute Plan: IV PROTONIX IV ZOSYN PAIN CONTROL HE FAILED DILAUDID 1 MG, 2 MG, AND FENTANYL 25 MCG. TORADOL WORKS ONLY FOR ABOUT 15 MIN. I WILL AVOID TORADOL IT CAN GIVE RISE TO GI BLEED. I HAVE RAISED FENTANYL TO 50 MCG IV. STILL HAS ILEUS AND WILL NOT BE ABLE TO EAT ORALLY. HE WILL CONTINUE TPN. (2) Bronchitis Current Visit: Yes Status: Acute Plan: LAST NIGHT HE HAD WHEEZES AND WE STARED NEBS TREATMENT. IMPROVED WHEEZES. (3) Acute renal failure Current Visit: Yes Status: Acute Plan: HPI WE CALLED IN SPICIALISTS TO GET HD STARTED. THIS WILL BE TEMPORARY. HE SHOULD FEEL LOT BETTER ONCE HE GETS DIALYSIS. I EXPLAINED TO THE ABOUT THIRD SPACING AND LOW ALBUMIN RELATED ACUTE RENAL FAILURE. HE MAY HAVE ATN FROM PANCREATITS ALSO. PROGNOSIS IS GUARDED. HE SHOULD DO BETTER. HE WILL GET MORE HD TODAY TO IMPROVE BLOATING. HOPEFULLY HD IS TEMPORARY. STABLE, DOING WELL WITH HD CREAT STILL 7. (4) Hypocalcemia Current Visit: Yes Status: Acute Plan: FALSE LOW FROM LOW ALBUMIN. RENAL MD ON CASE. (5) Sleep apnea Current Visit: Yes Status: Chronic Plan: BIPAP WILL HELP. NASAL PAD IS NOT AVAILABLE. HE WILL BUY IF WE CAN ALLOW. (6) Alcoholic hepatitis Current Visit: Yes Status: Acute Plan: BILI CAME DOWN TO 2.6 FROM 7. THIS SHOULD IMPROVE LONG HE QUIT ETOH. (7) Hyperglycemia Current Visit: Yes Status: Acute Plan: FROM TPN SHOULD IMPROVE WHEN WE ARE ABLE TO FEED HIM. LANTUS STARTED DAILY FOR NOW.
[2024-07-22 15:10] LABS: PT Prothrombin Time 13.8 SECONDS (10-13.0); PTT, Activated Partial Thromb 23.3 SECONDS (27.2-37.4); Protime INR 1.22
[2024-07-22 15:30] LABS: D-Dimer 8.415 FEUug/mL (0-0.500)
[2024-07-22] MEDS ORDERED: AA 5%/D20W/ELECTROLYTES-TPN 2,000 ML IV SCH (17:00)
[2024-07-22] MEDS ORDERED: AA 5%/D20W/ELECTROLYTES-TPN 2,000 ML, Lipids 20% 250 ML with MULTIVITAMINS INJ 10 ML IV SCH (17:00)
[2024-07-22] MEDS: LIPIDS 20% IV SCH (17:11)
[2024-07-22] MEDS: MULTIVITAMINS IV SCH (17:11)
[2024-07-22] MEDS: [UNRECOGNIZED DRUG - OTHER] IV SCH (17:11)
[2024-07-22] MEDS: FUROSEMIDE 40 MG/4 ML VIAL IV ONE (21:22)
--- NOTE | 2024-07-23 01:07 | PN ---
Date of Progress Note: 07/22/2024 Chief Complaint: Acute kidney injury. Subjective: The patient remains in ICU. He has severe pancreatitis. He is complaining of some abdo lisa distention. He was seen by Surgical team for possible ileus. He remains oliguric and dialysis dependent. He had dialysis done over the weekend via temporary Marcelino catheter. He is scheduled t o have dialysis today. Review of Systems: Denies nausea, vomiting, chest pain, palpitation, syncope. Physical Examination: Lungs: Few rhonchi. Heart: S1, S2. Abdomen: Distended. Diminished bowel sounds. Extremities: Slight edema. Impression And Plan: 1. Acute kidney injury, severe due to acute tubular necrosis in the setting of acute pancreatitis. T he patient was treated with IV fluids for hypotension related to pancreatitis. Currently, IV fluid i s on hold. The patient has abdominal distention. Continue ultrafiltration. The patient had dialysi s done and 2 L ultrafiltration was done. Avoid nonsteroidal anti-inflammatory medications, and avoid IV contrast. 2. Hyponatremia due to fluid retention, dialysis is scheduled. 3. Hypocalcemia, corrected calcium is 8. Monitor. The patient does not have hypocalcemic symptoms. Remains asymptomatic. Due to acute pancreatitis, plan is to monitor calcium levels. 4. Hyperphosphatemia due to acute kidney injury. Continue to monitor. Continue dialysis. Binders o n hold. The patient is currently n.p.o. 5. Fluid overload. Dialysis with ultrafiltration will be done. 6. Acute pancreatitis. White count is trending down. Further recommendation from Primary team. COLIN/EMILIA Voice ID: [id number] Report ID: [id number]
[2024-07-23 04:51] LABS: Absolute Basophils 0.1 K/uL (0-0.5); Absolute Eosinophils 0.1 K/uL (0-0.5); Absolute Lymphocytes (CBC) 0.9 K/uL (0.7-4.9); Absolute Neutrophil 11.5 K/uL (1.8-8.0); Basophils % 0.8 % (0-1.3); Eosinophils % 0.7 % (0-4.4); Hematocrit 36.4 % (39.6-49.0); Lymphocytes % 6.7 % (15.3-44.8); MCH 33.6 pg (27.0-35.0); MCHC 35.7 g/dL (32.0-36.0); MCV 94.1 fL (80-100); MPV 9.1 fL (7.6-11.3); Monocytes % 7.1 % (3.3-12.3); Nucleated Red Blood Cells % 0.2 % (0-0); Platelets 240 thou/uL (152-406); RBC Red Blood Cell Count 3.87 M/uL (4.33-5.43); Red Cell Distribution Width 14.2 % (12.1-15.2)
[2024-07-23 04:57] LABS: Neutrophils % 84.7 % (41.7-73.7)
[2024-07-23 05:23] LABS: Anion Gap 20.7 mEq/L (5.0-15.0); Magnesium 2.7 mg/dL (1.6-2.4); Phosphorus 8.4 mg/dL (2.5-4.9); Potassium 3.7 mEq/L (3.5-5.1)
[2024-07-23] MEDS ORDERED: propofoL 200 MG/20 ML VIAL IV ONE ×2 (10:26→12:39)
[2024-07-23] MEDS ORDERED: MIDAZOLAM HCL 2 MG/2 ML INJ ONE (10:26)
[2024-07-23] MEDS ORDERED: FENTANYL CITR 100 MCG/2 ML ONE (10:26)
[2024-07-23] MEDS ORDERED: ONDANSETRON 4 MG/2 ML VIAL ONE (10:26)
[2024-07-23] MEDS ORDERED: LIDOCAINE 2% MPF 5 ML VIAL ONE ×2 (10:26→12:37)
[2024-07-23] MEDS: NA CHLORIDE 0.9% 500 ML ONE (10:39)
[2024-07-23] MEDS: NA CHLORIDE 0.9% 100 ML ONE (10:50)
[2024-07-23] MEDS ORDERED: ROCURONIUM 50 MG/5 ML VIAL IV ONE (11:20)
[2024-07-23] MEDS ORDERED: EPHEDRINE SULF 50 MG/ML VIAL ONE (11:42)
[2024-07-23] MEDS ORDERED: dexAMETHasone 10 MG/ML VIAL ONE (11:54)
[2024-07-23] MEDS: HEPARIN 5000 UNIT/ML 1 ML VIAL ONE (12:22)
[2024-07-23] MEDS: BUPIVACAINE 0.5% PF 10 ML VIAL ONE (12:22)
[2024-07-23] MEDS ORDERED: GLYCOPYRROLATE 0.2 MG/ML SYR ONE (12:29)
[2024-07-23] MEDS ORDERED: NEOSTIGMINE 1 MG/ML -10 ML VIAL ONE (12:29)
[2024-07-23] MEDS ORDERED: BUPIVACAINE 0.5% PF 10 ML VIAL ONE (12:32)
--- NOTE | 2024-07-23 12:40 | P.BOP ---
Preoperative diagnosis: renal failure, pancreatitis Postoperative diagnosis: same Primary procedure: 1. Placement of tunneled Hemosplit HD catheter Secondary procedure: 2. Interpretation of fluoroscopy Other procedure(s): 3. Right neck ultrasound Estimated blood loss: <10cc Specimen: bettina catheter Findings: as above Anesthesia: General Complications: None Transferred to: Recovery Room Condition: Good
--- NOTE | 2024-07-23 13:07 | RAD REPORT ---
EXAM: Fluoroscopy use, Fluoroscopy <1 Hour HISTORY: HD CATH PLACEMENT COMPARISON: None FINDINGS: Multiple images were sent to PACS, during a fluoroscopically guided procedure. No radiologi st was involved in protocoling or performance of the study, and no radiologist was present for the duration of the procedure. No interpretation of the saved images will be provided. Total fluoroscopy time: 23 sec. IMPRESSION: Documentation of fluoroscopy use as above. Transcribed Date/Time: 07/23/2024 1:06 PM
[2024-07-23] MEDS: ALBUTEROL 2.5 MG/3 ML NEB SOL ONE (13:24)
--- NOTE | 2024-07-23 14:50 | RAD REPORT ---
Procedure: Chest Single View HISTORY: Central venous catheter placement COMPARISON: none FINDINGS: Central venous catheter has been placed into the superior vena cava. A pneumothorax is not present.
--- NOTE | 2024-07-23 15:14 | PN ---
Date of Progress Note: 07/23/2024 History Of Present Illness: This is a case of a 38-year-old patient with severe pancreatitis, been t reated for few days in the hospital requiring hemodialysis. He had an emergent femoral catheter plac ed several days ago that need to be changed to the upper body. We were looking for the opportunity a nd then yesterday, the catheter did not work anymore and now we request to move the catheter to the u pper torso. He is recovering from the medical standpoint. I discussed the case with Dr. Mendosa, it m ay require some sedation. He is morbidly obese and sometimes he gets a little bit anxious, so we ask ed permission to at least give him some sedation to move the catheter to right upper side. Since we expect this patient to be in dialysis for the next at least for more than a week, then we discussed w ith him the options of a tunneled catheter versus Marcelino and this heart catheter is bothering him, s o we are going to trying to move to the tunnel, which is a softer catheter in that area, as we predic t this patient may need more than 1 week of hemodialysis. He understands the benefits, alternatives, and risks of placement of a HemoSplit, which include, but not limited to infection, bleeding, damage to adjacent structures, anesthesia complication, hemothorax, pneumothorax, cardiac arrhythmias, DVTs , PE, [place], even . He also understands this is temporary catheter. If he continue with dialysis in the future, his primary doctor will find a place where he can have a more peripheral permanent acc ess. Hopefully, this is not that situation. If still this catheter required to be clean and require him to keep a flush and his renal service should be helping him with that, we gave him some instruct ions how to take care of it. This will be done on the OR. We are not going to do this in the ICU an d thus we asked permission for it on the fluoroscopy ultrasounds. He understands, he signed a consen t. We spent today time with the family, planing all this. Yesterday, we spent about an hour just ex plaining what is going on and how can we help from the surgical standpoint. Once again unfortunately from the pancreatic standpoint, not much we can do in this institution if he gets to the point that once again continue or becomes an issue. We encouraged the transfer to a Tertiary Center. JOSE/EMILIA Voice ID: [id number] Report ID: [id number]
[2024-07-23] MEDS: PIPER TAZO 2.25 GM in NA CHLORIDE 0.9% 50 ML IV SCH (17:24)
[2024-07-23 21:06] LABS: Alpha-1-Antitrypsin 317 mg/dL (83-199); Ceruloplasmin 26 mg/dL (14-30)
--- NOTE | 2024-07-23 21:48 | PN ---
Date of Progress Note: 07/23/2024 Subjective: The patient was admitted with acute pancreatitis. The patient had acute kidney injury, possible secondary to toxic ATN, secondary to pancreatitis. The patient was oliguric. Patient was initiated on dialysis. Unfortunately, catheter did not work. The patient planned for TDC placement today. The patient being over volume. Patient continued to be oliguric, even yesterday had a little bit of urine output, but significant over-volume. Physical Examination: Vital Signs: Blood pressure 124/79, pulse of 104. Chest: Crackles bilateral. Heart: S1, S2. Systolic murmur. Abdomen: Tender, distended. Extremities: +1 edema. Neurologic: Alert. No focality. Laboratory Data: Hemoglobin 13. Sodium 130, potassium 3.7, bicarb 19, BUN 119, creatinine 10.6, calcium 8.3, phosphorus 8.4, magnesium 2.7. WBC 13, hemoglobin 13. Urinalysis, +2 protein. Serology, ALEXI is still pending. Hepatitis was negative. Current Medications: The patient on include Zosyn 4.25 q.8, promethazine, Lovenox. The patient refused Lasix yesterday. Assessment And Plan: 1. Acute kidney injury secondary to poor perfusion, acute tubular necrosis. I am going to go ahead and continue dialysis. The patient on the over-volume side. I am going to do daily dialysis in the next 3 days and will follow up the patient. We will adjust antibiotic dose given the current kidney function and we will follow up the patient. I am going to give the proteinuria. I am going to quantify it and will send for full serology and will follow up with the patient. 2. Over-volume. Patient is going to be dialyzed daily. 3. Acidosis will be corrected with dialysis. 4. Acute pancreatitis as by primary. 5. Hypokalemia. I will be cautious with any supplement for the time being. We will dialyze the patient on high potassium bath. 6. Hyponatremia, dilutional, will be corrected with dialysis. 7. Alcoholic pancreatitis as by primary. We will adjust the Zosyn to 2.25 given the current kidney function. time spent to exam the patient face to face , reviewing data lab and radiology , placing order , discussing the case with the patient and discussing the case with the produce team lead including hospitalist and nursing staff >55 min CLIFF/EMILIA Voice ID: [id number] Report ID: [id number] FLRO
[2024-07-23 22:39] VITALS: BP 126/63; TEMP 98.4
[2024-07-23 22:46] VITALS: O2SAT 97
--- NOTE | 2024-07-23 23:28 | OP ---
Date of Procedure: 07/23/2024 Surgeon: Miguel Senior MD Preoperative Diagnoses: Renal failure, pancreatitis. Postoperative Diagnoses: Renal failure, pancreatitis. Procedures: 1. Placement of a tunnel HemoSplit hemodialysis catheter in the right jugular vein. 2. Interpretation of fluoroscopy. 3. Right neck ultrasound. Estimated Blood Loss: Less than 10 cc. Specimen: Marcelino catheter removed from the right femoral vein. Anesthesia: General plus local. Complications: None. Indications: This is a case of a 38-year-old patient with acute pancreatitis and the other comorbidi ties and the process patient also have renal failure so he has been receiving hemodialysis through e right femoral line that was placed emergently at bedside. This line in the femoral was not longer working. He still needs to receive hemodialysis, so we discussed with the medical team Dr. Swanson in e renal service and since it is in need for his dialysis and we expect to be more than a week and we are going to take in anyway under anesthesia in OR with fluoroscopy and ultrasound due to morbid obes ity, even want a tunneled catheter that made probably provide longer service for him, so it was agree d. The patient also agreed, so the benefits, alternatives, and risks of a HemoSplit hemodialysis cat heter fully explained, which include, but not limited to infection, bleeding, damage to adjacent stru ctures, anesthesia complication, DVTs, pericarditis, endocarditis, DVTs, PEs, pneumothorax, hemothora x, [place] and even . He also understands this may not relieve symptoms, he might need more than one surgical intervention. He also understands this is a temporary catheter. He need maintenance of th is, so his renal service will be in charge of that once he gets home and when the hemodialysis cathet er is not in use anymore, he was advised to come back so we can remove it. He also wants the femoral catheter to be removed today and we are going to do that at the same time. Description Of Procedure: The patient was brought to the operating room, placed in supine position. Anesthesia was done without complication. Right neck and chest and also femoral regions were preppe d and draped in sterile fashion. A time-out was called. Local anesthesia was applied. The patient placed in Trendelenburg position and right neck ultrasound was done to visualize the right jugular ve in and is compressible. With the ultrasound in place, we proceeded to cannulize the vein. A guidewi re was passed through, got into with fluoroscopy into superior vena cava. Then catheter was selected proper size and tunneled underneath from the right upper chest into the neck incision. Serial dilat ors were placed through the guidewire under direct fluoroscopy until we put the introducer sheath. T he guidewire was removed. The catheter was placed in and the HemoSplit was peeled off. This was don e in Trendelenburg position. Excellent backflow and inflow. At that moment, I proceeded then to radha ce the first in normal position and closed the subcutaneous tissue with 3-0 chromic and secured the c atheter with 3-0 nylon and covered with sterile dressings. Patient tolerated the procedure well. At that moment, we went to the right femoral region, a time-out was called once again and at that momen t, I proceeded then to remove the stitches and then removed the Marcelino catheter from the right femor al vein and apply pressure for about 15 minutes. No bleeding. The area was covered with sterile blanca ssings. Patient in his way to recovery in stable condition. JOSE/EMILIA Voice ID: [id number] Report ID: [id number]
--- NOTE | 2024-07-24 16:01 | P.DS ---
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 FIRST HE GOES TO [facility] ER. CT SHOWS ACUTE PANCREATITIS.GOES HOME BUT IS IN SEVERE PAIN SO RETURNS TO THIS ER. HE HAS LIPASE OF 2K. HE HAS DRUNK ABOUT 4 SCOTCH GLASSES EVERY NIGHT FOR A WHILE. Hospital Course: JAMAR CAME TO [facility] WITH SEVERE ABDOMEN PAIN AND RADIATION TO BACK. LIPASE WAS 2000 ON ADMISSION LATER CAME DOWN TO LESS THAN 30 IN A FEW DAYS. HE WAS GIVEN IV FLUIDS, HE STILL DVELOPED ACUTE RENAL FAILURE IN 3 DAYS AND HAD TO BE STARTED ON HEMODIALYSIS. HE HAS ILEUS FROM PANCREATITIS AND IS NOT ABLE TO EAT SO FAR. HE HAS BEEN ON TPN FOR FEEDING. FAMILY ASKED FOR TRANSFER TO A BIGGER HOSPITAL. WE CALLED A FEW AND [facility] IN [place] HAD A BED AND THEY ACCEPTED HIM. HE HAD NG TUBE TRIAL BUT HE DEVELOPED HEMOPTYSIS FROM INSERTION AND IT WAS ABANDONED. HE IS STABLE FOR TRANSFER AND WAS SENT AT NIGHT AFTER 9 PM. Vital Signs/Physical Exam: Temp Pulse Resp BP Pulse Ox 98.4 F 95 H 14 126/63 94 07/23/24 20:00 07/23/24 22:00 07/23/24 22:00 07/23/24 22:00 07/23/24 22:00 Laboratory Data at Discharge: WBC 13.60 thou/uL (4.3-10.9) H 07/23/24 04:40 Hgb 13.0 g/dL (13.6-17.9) L 07/23/24 04:40 Hct 36.4 % (39.6-49.0) L 07/23/24 04:40 Plt Count 240 thou/uL (152-406) D 07/23/24 04:40 PT 13.8 SECONDS (10-13.0) H 07/22/24 14:20 INR 1.22 07/22/24 14:20 APTT 23.3 SECONDS (27.2-37.4) L 07/22/24 14:20 Sodium 130 mEq/L (136-145) L 07/23/24 04:40 Potassium 3.7 mEq/L (3.5-5.1) 07/23/24 04:40 BUN 119 mg/dL (7-18) H 07/23/24 04:40 Creatinine 10.60 mg/dL (0.70-1.30) H 07/23/24 04:40 Glucose 259 mg/dL (74-106) H 07/23/24 04:40 Uric Acid 8.0 mg/dL (3.5-7.2) H 07/21/24 18:55 Phosphorus Cancelled 07/23/24 05:00 Magnesium 2.7 mg/dL (1.6-2.4) H 07/23/24 04:40 Total Bilirubin 1.1 mg/dL (0.2-1.0) H 07/21/24 07:30 AST 19 U/L (15-37) 07/21/24 07:30 ALT 23 U/L (16-61) 07/21/24 07:30 Alkaline Phosphatase 37 U/L (45-117) L 07/21/24 07:30 Triglycerides 281 mg/dL (<150) H 07/17/24 07:43 Cholesterol 167 mg/dL (<200) 07/17/24 07:43 HDL Cholesterol 49 mg/dL (40-60) 07/17/24 07:43 Cholesterol/HDL Ratio 3.41 07/17/24 07:43 Lipase 42 U/L (13-75) 07/21/24 07:30 Home Medications: Carvedilol [Coreg] 6.25 mg PO BID 07/18/24 Levothyroxine [Synthroid*] 0.15 mg PO DAILY 07/18/24 Followup: Drake Mendosa MD [Primary Care Provider] -
[2024-07-25 16:14] LABS: Anti-Nuclear Antibody Screen Positive (Negative)
[2024-07-25 16:42] LABS: Anti-Nuclear Antibody Pattern REPORT
== END 2024-07-23 23:03 | disposition short-term general hospital (02) | DRG 438 ==
LOC: ER 07:13 → ERHOLD 09:08 → 2ND 17:53 → 3RD-ICU 21:13
PROVIDERS: ADMIT Internal Medicine; ATTEND Internal Medicine
PROC: 02HV33Z Insertion of Infusion Device into Superior Vena Cava, Percutaneous Approach (ICD-10-PCS; 2024-07-17)
PROC: 4A033R1 Measurement of Arterial Saturation, Peripheral, Percutaneous Approach (ICD-10-PCS; principal; 2024-07-19)
PROC: 5A09557 Assistance with Respiratory Ventilation, Greater than 96 Consecutive Hours, Continuous Positive Airway Pressure (ICD-10-PCS; 2024-07-19)
PROC: 5A1D70Z Performance of Urinary Filtration, Intermittent, Less than 6 Hours Per Day (ICD-10-PCS; 2024-07-19)
PROC: 0T9B70Z Drainage of Bladder with Drainage Device, Via Natural or Artificial Opening (ICD-10-PCS; 2024-07-19)
PROC: 3E0336Z Introduction of Nutritional Substance into Peripheral Vein, Percutaneous Approach (ICD-10-PCS; 2024-07-21)
PROC: 0DH67UZ Insertion of Feeding Device into Stomach, Via Natural or Artificial Opening (ICD-10-PCS; 2024-07-22)
PROC: 0JH63XZ Insertion of Tunneled Vascular Access Device into Chest Subcutaneous Tissue and Fascia, Percutaneous Approach (ICD-10-PCS; 2024-07-23)
PROC: 02HV33Z Insertion of Infusion Device into Superior Vena Cava, Percutaneous Approach (ICD-10-PCS; 2024-07-23)
DX: K85.20 Alcohol induced acute pancreatitis without necrosis or infection (principal); N17.0 Acute kidney failure with tubular necrosis; Z68.41 Body mass index [BMI] 40.0-44.9, adult; E87.1 Hypo-osmolality and hyponatremia; K56.7 Ileus, unspecified; E87.20 Acidosis, unspecified; E66.01 Morbid (severe) obesity due to excess calories; I10 Essential (primary) hypertension; E03.9 Hypothyroidism, unspecified; K70.10 Alcoholic hepatitis without ascites; J20.9 Acute bronchitis, unspecified; E83.51 Hypocalcemia; G47.30 Sleep apnea, unspecified; F10.10 Alcohol abuse, uncomplicated; E83.39 Other disorders of phosphorus metabolism; E87.70 Fluid overload, unspecified; R73.9 Hyperglycemia, unspecified; Z88.5 Allergy status to narcotic agent
CPT/HCPCS: 36415; 36569; 36600; 71045; 74018; 74176; 74181; 76000; 76700; 76857; 80048; 80053; 80061; 80074; 80076; 80202; 81001; 82103; 82248; 82390; 82550; 82728; 82805; 82947; 83540; 83690; 83735; 83880; 84100; 84439; 84443; 84466; 84550; 85025; 85379; 85384; 85610; 85730; 86015; 86038; 86255; 86704; 86706; 88300; 90935; 93306; 94010; 94640; 94660; 96361; 96365; 96366; 96375; 97116; 97161; 97530; 99285; C1752; J0612; J1100; J1171; J1200; J1644; J1650; J1815; J1938; J2003; J2250; J2405; J2470; J2543; J2704; J2710; J2919; J3010; J3411; J7030; J7040; J7050; J7120; J7613; J7614; Q0169